=== PATIENT | female | born 1955 | race Caucasian/White ===

== ENCOUNTER 2022-02-19 14:01 | Inpatient (IN) ==
[2022-02-19] MEDS ORDERED: SODIUM CHLORIDE 0.9% 500 ML IV ONE (14:18)
--- NOTE | 2022-02-19 14:21 | Emergency Department Note ---
Impression & Plan Weakness, Hypotension, Diarrhea, Dependence on renal dialysis ED Provider Note NAME: GEO MCNALLY AGE: 67 SEX: F : 1955 ARRIVES VIA: Ambulance INFORMANT: Patient ED PROVIDER(S): Espinoza Tijerina DO CHIEF COMPLAINT: weakness and diarrhea HPI: Patient is a 67-year-old female with past medical history of hypothyroidism, metabolic syndrome, hypertension and a flutter on apixaban that presents the ER for diarrhea and weakness. She was recently discharged from [facility] this past Friday. She has a fistula and was prepping for colonoscopy tomorrow. She started the prep late last night. This morning she has been having persistent diarrhea and feels very weak and rundown and cannot move or get around so they called EMS. She denies any headache or change in vision. No chest pain or shortness of breath. No nausea, vomiting, or diarrhea. She normally gets dialysis Friday but with a colonoscopy she received dialysis yesterday. ROS: See above HPI for pertinent positives & negatives. A total of 10 systems reviewed and were otherwise negative. PAST MEDICAL HISTORY:See Below PAST SURGICAL HISTORY:See Below FAMILY HISTORY:See Below SOCIAL HISTORY:See Below HOME MEDICATIONS:See Below ALLERGIES:See Below VITALS:See Below PHYSICAL EXAMINATION: GENERAL: Sitting up in bed, alert, well appearing, well nourished, no distress, non-toxic EYE EXAM: normal conjunctiva. OROPHARYNX: no exudate, no erythema, lips, buccal mucosa, and tongue normal and mucous membranes are moist NECK: supple, no nuchal rigidity, no adenopathy, non-tender CHEST: fistula in right upper chest LUNGS: Clear to auscultation. Normal chest wall mechanics HEART: no murmurs, S1 normal and S2 normal ABDOMEN: abdomen soft, non-tender, normo-active bowel sounds, no masses, no rebound or guarding. UPPER EXTREMITIES: upper extremities are grossly normal. LOWER EXTREMITIES: Small abrasion on right anterior casper NEURO EXAM: Normal sensorium, cranial nerves II-XII grossly intact, normal speech, no gross weakness of arms, no gross weakness of legs. MEDICAL DECISION MAKING: Patient is a 67-year-old female who presents the ER with above-stated complaint. IV was established blood work was obtained. Labs show mild leukocytosis of 10.9. Mild anemia at 8.3 consistent with previous. BMP with a creatinine of 3.4. LFTs bilirubin and lipase is unremarkable. COVID was negative. She received dialysis yesterday so she can scope tomorrow and will receive dialysis on Friday. Discussed with GI Dr. Breen some mild and due to the weakness and the dehydration in a patient receiving dialysis recommended admission and they will try to scope tomorrow. Discussed with Sonia from case here service and they recommended transfer as we have no dialysis. Discussed with wood room supervisor who agreed that this was reasonable to bring in as she does not need dialysis and will not need it till and is agreeable to consulting and evaluating the patient. We discussed with the hospitalist service and they are agreeable. Triage Nursing notes reviewed. Limited review of prior medical records performed Vital Signs: reviewed and remarkable for hypotension Differential diagnosis: Infection, dehydration, metabolic abnormality, hypo/hyperglycemia, electrolyte disturbance, anemia, hypoxia, cardiac sources, intracerebral event, toxicologic, neurologic, as well as other pathologies. ER treatment provided: See below Diagnostics interpreted by me: ECG: Sinus rhythm rate of 105 Poor baseline Normal axis Difficult to interpret due to baseline Cardiac Monitoring: An order was placed for continuous cardiac monitoring. The monitor shows a rate of 101 with sinus rhythm. Laboratory studies: As stated above and show below. Imaging studies: See below Consultation(s): As described above Procedures: none Past Med/Surg History Medical History (Updated 02/19/22 @ 20:28 by Espinoza Tijerina DO) Anemia Anxiety Arthritis Atrial flutter HX A FLUTTER>CARDIAC ABLATION 2020 AV fistula RT (NEW DEVICE/HAS NOT USED YET) CKD (chronic kidney disease) Dialysis patient M/W/F AT [facility] Goodpasture syndrome Hemodialysis status History of COVID-19 09/2021 TESTED AT [facility]>HOSPITALIZED FOR FALLING>WENT TO REHAB (PT STATES ONLY WAS WEAK) Hyperlipidemia Hypertension Hypothyroidism Lymphedema right leg (chronic) Morbid obesity with BMI of 50.0-59.9, adult LAVON on CPAP CPAP Osteoarthritis Surgical History H/O cardiac radiofrequency ablation 06/2021 [facility] History of cardioversion 5 YEARS AGO History of colonoscopy attempted colonoscopy in November 2021 -- unsuccessful d/t poor prep History of tonsillectomy History of vascular access device CURRENT PORT IN CHEST FOR DIALYSIS USE Hx of vaginal hysterectomy Family History Mother Family history of diabetes mellitus Other No family history of adverse response to anesthesia Social History Smoking Status: Never smoker Second Hand Exposure: No; Hx Alcohol Use: No Hx Substance Use: No Preferred Language: Malian Communication Ability: Effective Manager Private Required: No Beliefs That Will Affect Care: None marital status: Current Living Situation: Spouse Feels Safe at Home: Yes Assistive Devices: CPAP, Glasses, Walker and Wheelchair Allergies Allergies Allergy/AdvReac Type Severity Reaction Status Date / Time adhesive tape Allergy Intermediate blisters Verified 02/19/22 17:03 No Known Drug Allergies Allergy NKDA Verified 02/19/22 17:03 Home Meds Home Medications Medication Instructions Recorded Confirmed apixaban 5 mg tablet (Eliquis) 2.5 mg PO .HOLD UD 04/17/20 02/19/22 levothyroxine 125 mcg capsule 125 mcg PO QAM 04/17/20 02/19/22 metoprolol succinate 25 mg 25 mg PO 4XWK 04/17/20 02/19/22 tablet,extended release 24 hr ferrous sulfate 325 mg (65 mg 325 mg PO QAM 11/22/21 02/19/22 iron) tablet (iron) multivitamin with minerals 1 tab PO QAM 11/22/21 02/19/22 omeprazole 40 mg capsule,delayed 40 mg PO QAM PRN 11/22/21 02/19/22 release prednisone 5 mg tablet 5 mg PO QAM 11/22/21 02/19/22 atorvastatin 20 mg tablet 20 mg PO QAM 02/15/22 02/19/22 midodrine 5 mg tablet 5 mg PO TID 02/15/22 02/19/22 Results & Data (ED) Vital Signs Vital Signs - 24 hr 02/19/22 14:12 02/19/22 15:46 02/19/22 16:49 Temperature 37.1 C Temperature Source Oral Pulse Rate 102 H Pulse Rate [Apical] 78 Pulse Rhythm Regular Pulse Strength Normal Respiratory Rate 20 20 Respiratory Effort / Characteristics Non-Labored Respiratory Depth Normal Respiratory Pattern Regular Blood Pressure [Left Arm] 84/58 L 92/58 L Blood Pressure Mean [Left Arm] 66 69 Pulse Oximetry 96 91 Oxygen Delivery Method Room Air Room Air Sepsis Recent Fever Within 48 Hours No Sepsis New/Unexplained Change in Mental Status No Sepsis Action Taken by Nursing No Action Required 02/19/22 17:03 02/19/22 17:57 02/19/22 18:38 Temperature Temperature Source Pulse Rate 76 Pulse Rate [Apical] 76 Pulse Rhythm Regular Pulse Strength Respiratory Rate 14 22 Respiratory Effort / Characteristics Non-Labored Respiratory Depth Normal Respiratory Pattern Blood Pressure [Left Arm] 81/41 L 90/40 L Blood Pressure Mean [Left Arm] 54 56 Pulse Oximetry 92 92 Oxygen Delivery Method Room Air Room Air Sepsis Recent Fever Within 48 Hours Sepsis New/Unexplained Change in Mental Status Sepsis Action Taken by Nursing Laboratory Data Result diagrams: 02/19/22 14:37 02/19/22 14:37 Lab Results 02/19/22 02/19/22 02/19/22 Range/Units 14:37 14:37 14:37 WBC 10.99 H (4.8-10.8) K/uL RBC 2.65 L (4.2-5.4) M/uL Hgb 8.3 L (12.0-16.0) g/dL Hct 27.5 L (37-47) % MCV 103.8 H (80-100) fL MCH 31.3 (25-34) pg MCHC 30.2 L (32-36) g/dL RDW Std Deviation 74.0 H (36.4-46.3) fL RDW Coeff of Nina 19.6 H (11.5-14.5) % Plt Count 154 (130-400) K/uL MPV 10.6 H (7.4-10.4) fL Immature Gran % (Auto) 0.5 % Neut % (Auto) 86.4 % Lymph % (Auto) 3.0 % Bailey % (Auto) 10.1 % Eos % (Auto) 0.0 % Baso % (Auto) 0.0 % Neut # (Auto) 9.50 H (1.4-6.5) K/uL Lymph # (Auto) 0.33 L (1.2-3.4) K/uL Bailey # (Auto) 1.11 H (0.11-0.59) K/uL Eos # (Auto) 0.00 (0-0.5) K/uL Baso # (Auto) 0.00 (0-0.2) K/uL Immature Gran # (Auto) 0.05 H (0.00-0.02) K/uL Sodium 138 (136-145) mmol/L Potassium 3.9 (3.5-5.1) mmol/L Chloride 101 (98-107) mmol/L Carbon Dioxide 28 (21-32) mmol/L Anion Gap 9 (3-11) BUN 15 (6-23) mg/dl Creatinine 3.45 H (0.6-1.2) mg/dl Est Cr Clr Drug Dosing 16.7 ml/min Est GFR ( Amer) 15.0 ml/min Est GFR (Non-Af Amer) 12.9 ml/min BUN/Creatinine Ratio 4.3 L (10-20) Glucose 81 (70-99(Fasting)) mg/dl Calcium 7.8 L (8.5-10.1) mg/dl Magnesium 1.8 (1.7-2.4) mg/dl Total Bilirubin 0.7 (0.2-1.0) mg/dl AST 22 (13-39) U/L ALT 15 (7-52) U/L Alkaline Phosphatase 94 (34-104) U/L Total Protein 4.9 L (6.0-8.3) gm/dl Albumin 2.7 L (3.4-5.0) gm/dl Globulin 2.2 L (2.5-4.0) gm/dl Albumin/Globulin Ratio 1.2 (0.9-2) Lipase 17 (11-82) U/L SARS-CoV-2, RNA, NAAT (NEGATIVE) 02/19/22 Range/Units 14:45 WBC (4.8-10.8) K/uL RBC (4.2-5.4) M/uL Hgb (12.0-16.0) g/dL Hct (37-47) % MCV (80-100) fL MCH (25-34) pg MCHC (32-36) g/dL RDW Std Deviation (36.4-46.3) fL RDW Coeff of Nina (11.5-14.5) % Plt Count (130-400) K/uL MPV (7.4-10.4) fL Immature Gran % (Auto) % Neut % (Auto) % Lymph % (Auto) % Bailey % (Auto) % Eos % (Auto) % Baso % (Auto) % Neut # (Auto) (1.4-6.5) K/uL Lymph # (Auto) (1.2-3.4) K/uL Bailey # (Auto) (0.11-0.59) K/uL Eos # (Auto) (0-0.5) K/uL Baso # (Auto) (0-0.2) K/uL Immature Gran # (Auto) (0.00-0.02) K/uL Sodium (136-145) mmol/L Potassium (3.5-5.1) mmol/L Chloride (98-107) mmol/L Carbon Dioxide (21-32) mmol/L Anion Gap (3-11) BUN (6-23) mg/dl Creatinine (0.6-1.2) mg/dl Est Cr Clr Drug Dosing ml/min Est GFR ( Amer) ml/min Est GFR (Non-Af Amer) ml/min BUN/Creatinine Ratio (10-20) Glucose (70-99(Fasting)) mg/dl Calcium (8.5-10.1) mg/dl Magnesium (1.7-2.4) mg/dl Total Bilirubin (0.2-1.0) mg/dl AST (13-39) U/L ALT (7-52) U/L Alkaline Phosphatase (34-104) U/L Total Protein (6.0-8.3) gm/dl Albumin (3.4-5.0) gm/dl Globulin (2.5-4.0) gm/dl Albumin/Globulin Ratio (0.9-2) Lipase (11-82) U/L SARS-CoV-2, RNA, NAAT NEGATIVE (NEGATIVE) Administered Medications Discontinued Medications Sodium Chloride (Nss) 500 mls @ 999 mls/hr IV .Q31M ONE Stop: 02/19/22 14:48 Last Infusion: 02/19/22 17:43 Dose: 0 mls/hr Documented by: [id number] Admin: 02/19/22 15:01 Dose: 999 mls/hr Documented by: [id number] Discharge Plan Visit Data Chief Complaint: Weakness Stated Complaint: WEAKNESS, UNABLE TO AMBULATE, DIARRHEA ED Provider: Espinoza Tijerina Discharge Problem: Weakness, Hypotension, Diarrhea, Dependence on renal dialysis Forms Stand Alone Forms: [facility] Prescriptions Prescriptions: No Action metoprolol succinate 25 mg tablet extended release 24 hr 25 mg PO 4XWK RF: 0 levothyroxine 125 mcg capsule 125 mcg PO QAM RF: 0 Eliquis 5 mg tablet 2.5 mg PO .HOLD UD RF: 0 prednisone 5 mg Tablet 5 mg PO QAM RF: 0 omeprazole 40 mg Capsule,Delayed Release(Dr/Ec) 40 mg PO QAM PRN (Reason: severe heartburn) RF: 0 multivitamin with minerals Tablet 1 tab PO QAM RF: 0 ferrous sulfate [iron] 325 mg (65 mg iron) Tablet 325 mg PO QAM RF: 0 atorvastatin 20 mg Tablet 20 mg PO QAM RF: 0 midodrine 5 mg Tablet 5 mg PO TID RF: 0 Referrals Referrals: Esperanza Carrillo PA-C [Primary Care Provider] - Discharge Problem: Hypotension Qualifiers: Hypotension type: unspecified hypotension type Qualified Code(s): I95.9 - Hypotension, unspecified Diarrhea Qualifiers: Diarrhea type: unspecified type Qualified Code(s): R19.7 - Diarrhea, unspecified
[2022-02-19 15:03] LABS: Hematocrit (blood only) 27.5 % (37-47); Hemoglobin 8.3 g/dL (12.0-16.0); Immature Granulocytes # (auto) 0.05 K/uL (0.00-0.02); Immature Granulocytes % (auto) 0.5 %; Lymphocytes # (auto) 0.33 K/uL (1.2-3.4); Mean Corpuscular Hemoglobin 31.3 pg (25-34); Mean Corpuscular Hgb Conc 30.2 g/dL (32-36); Mean Corpuscular Volume 103.8 fL (80-100); Mean Platelet Volume 10.6 fL (7.4-10.4); Monocytes # (auto) 1.11 K/uL (0.11-0.59); Monocytes % (auto) 10.1 %; Neutrophils % (auto) 86.4 %; Platelet Count 154 K/uL (130-400); RDW Coefficient of Variation 19.6 % (11.5-14.5); Red Blood Count 2.65 M/uL (4.2-5.4); White Blood Count 10.99 K/uL (4.8-10.8)
[2022-02-19 15:16] LABS: Albumin Globulin Ratio 1.2 (0.9-2); Albumin Level 2.7 gm/dl (3.4-5.0); BUN Creatinine Ratio 4.3 (10-20); Bilirubin,Total 0.7 mg/dl (0.2-1.0); Calcium 7.8 mg/dl (8.5-10.1); Creatinine Clr Calc Pharmacy 16.7 ml/min; Est GFR (Non-African American) 12.9 ml/min; Globulin 2.2 gm/dl (2.5-4.0); Potassium 3.9 mmol/L (3.5-5.1); Total Protein 4.9 gm/dl (6.0-8.3)
--- NOTE | 2022-02-19 17:24 | Communication Note ---
Date of Service: February 19, 2022 Pt being admitted from the ER - came in with weakness, diarrhea; she is completing an extended prep for colonoscopy tomorrow. - Recommend she continue and finish her prep - Can have clear liquids until midnight - NPO after midnight - Colonoscopy tomorrow Please call with any acute changes, questions or concerns. Please see addendum below with additional recommendation from my supervising physician. I have discussed the patient's management with the advanced practitioner. Please refer to the nurse practitioner's note for the documented findings and plan of care. Admitted due to dehydration from bowel prep with hypotension in the setting of ESRD on HD. Plan to continue gentle prep overnight and colonoscopy tomorrow.
--- NOTE | 2022-02-19 17:40 | History & Physical Report ---
Date of Service February 19, 2022 Assessment & Plan (1) Gastrointestinal fistula: (2) Goodpasture syndrome: (3) Hemodialysis status: (4) Hypotension: (5) Atrial flutter: (6) Hypothyroidism (acquired): (7) LAVON on CPAP: (8) Morbid obesity with BMI of 50.0-59.9, adult: Plan: This is a 67yo F with a PMH of Goodpasture syndrome on HD MWF, atrial flutter, HTN, severe LAVON and other medical problems listed below who presents with worsening weakness and lightheadedness in setting of bowel prep. GI fistula Records requested from recent admission at [facility] Colonoscopy with Dr. Ramirez in AM Clears this evening, NPO after midnight Continue prep with Golytely per discussion with Dr. Ramirez, antiemetics PRN Goodpasture syndrome Hemodialysis [place] [facility] [place] Dr. Gonzalez nephro HD patient MWF, received yesterday and due on If need for urgent dialysis, may need transfer due to limited resources Discussed patient with Dr. Eckert Continue prednisone Hypotension Baseline SBP 85-90 Continue Midodrine, received 500 ml NSS in ED. Continue gentle fluids at 100 cc /hr to keep SBP near baseline during prep Metoprolol with hold parameters Severe ALVON CPAP HS Atrial flutter Metoprolol with hold parameters Eliquis on hold for procedure, per [facility] cardiology Morbid obesity with BMI > 50 DVT Ppx: SCDs Code status: FULL PCP: Gerardo Dispo: Med tele Patient seen in collaboration with Dr. Mcknight. Please see addendum. History of Present Illness Chief Complaint: weakness, lightheadedness Primary Care Provider: Esperanza Carrillo This is a 67yo F with a PMH of Goodpasture syndrome on HD MWF, atrial flutter, HTN, severe LAVON and other medical problems listed below who presents with wo rsening weakness and lightheadedness. Was due for colonoscopy tomorrow due to rectovaginal fistula per patient but due to progressing weakness and lightheadedness, was directed by Dr. Ramirez to present to ER instead. Has been doing slow prep with miralax over 2 days due to intolerance to prep last time. Has been holding Eliquis since Kt for procedure per remediation technician at [facility]. Feeling better while lying down but still generally weak. No syncopal events or falls at home. No fever, chills, headache, chest pain, SOB, nausea, abdominal pain or blood in stool. Does not make urine 2/2 kidney disease. BP soft at baseline with SBP around 85-90 at home, per family at bedside. Complicated medical course recently with admission at [facility] at the beginning of the month followed by 2 weeks at [facility] rehab prior to returning home 1 week ago. Allergies Allergy/AdvReac Type Severity Reaction Status Date / Time adhesive tape Allergy Intermediate blisters Verified 02/19/22 17:03 No Known Drug Allergies Allergy NKDA Verified 02/19/22 17:03 Home Medications Medication Instructions Recorded Confirmed Type apixaban 5 mg tablet (Eliquis) 2.5 mg PO .HOLD UD 04/17/20 02/19/22 History levothyroxine 125 mcg capsule 125 mcg PO QAM 04/17/20 02/19/22 History metoprolol succinate 25 mg 25 mg PO 4XWK 04/17/20 02/19/22 History tablet,extended release 24 hr ferrous sulfate 325 mg (65 mg 325 mg PO QAM 11/22/21 02/19/22 History iron) tablet (iron) multivitamin with minerals 1 tab PO QAM 11/22/21 02/19/22 History prednisone 5 mg tablet 5 mg PO QAM 11/22/21 02/19/22 History atorvastatin 20 mg tablet 20 mg PO QAM 02/15/22 02/19/22 History buspirone 5 mg tablet 5 mg PO BID #30 tab 02/23/22 Rx midodrine 5 mg tablet 10 mg PO TID #0 tab 02/23/22 02/19/22 Rx pantoprazole 40 mg tablet,delayed 40 mg PO QAM PRN #30 tab 02/23/22 Rx release Past Med/Surg History Medical History Anemia Anxiety Arthritis Atrial flutter HX A FLUTTER>CARDIAC ABLATION 2020 AV fistula RT (NEW DEVICE/HAS NOT USED YET) CKD (chronic kidney disease) Dialysis patient M/W/F AT [facility] Hemodialysis status History of COVID-19 09/2021 TESTED AT [facility]>HOSPITALIZED FOR FALLING>WENT TO REHAB (PT STATES ONLY WAS WEAK) Hyperlipidemia Hypotension new/worse in 2021 Hypothyroidism Lymphedema right leg (chronic) Morbid obesity with BMI of 50.0-59.9, adult LAVON on CPAP CPAP Osteoarthritis Rectovaginal fistula Surgical History H/O cardiac radiofrequency ablation 06/2021 [facility] History of cardioversion 5 YEARS AGO History of colonoscopy attempted colonoscopy in November 2021 -- unsuccessful d/t poor prep History of tonsillectomy History of vascular access device CURRENT PORT IN CHEST FOR DIALYSIS USE Hx of vaginal hysterectomy Family History Mother Family history of diabetes mellitus Other No family history of adverse response to anesthesia Social History Smoking Status: Never smoker Second Hand Exposure: No; Hx Alcohol Use: No Hx Substance Use: No Preferred Language: Bulgarian Communication Ability: Effective Branch Banker Required: No Beliefs That Will Affect Care: None marital status: Current Living Situation: Spouse Feels Safe at Home: Yes Assistive Devices: CPAP, Walker and Wheelchair Review of Systems Review of Systems: At least ten systems reviewed and negative except as noted in the HPI. Physical Exam Physical Exam: General Appearance: WD/WN, vitals as above, NAD, sitting up in bed, pleasant, morbidly obese Head: normocephalic, atraumatic Eyes: normal inspection, PERRL, conjunctivae normal, anicteric sclerae ENT: external ear and nose normal, oropharynx normal Neck: normal visual inspection, trachea midline, no thyromegaly Respiratory: normal respiratory effort, lungs clear to auscultation, no wheeze, rales, rhonchi. No accessory muscle use Cardiovascular: regular rate, rhythm, no murmur, normal peripheral pulses, BLE lymphedema. Vessels: no JVD Chest: normal inspection of chest Abdomen/GI: hyperactive bowel sounds, soft, nontender, no hepatosplenomegaly Extremities/Musculoskeletal: no cyanosis or clubbing, extremities motor streng th 12/27. RLE wound with dressing in place, c/d/i Neurologic: PERRL, EOMI, accommodation nl, no face palsy, no dysarthria, CN's II-XI intact bilaterally and moves all extremities Psychiatric: A+Ox3, euthymic affect Skin: no rashes, normal color, warm/dry Results & Data Results & Data ([facility]) Vital Signs (Past 12 Hours) Vital Signs Temp Pulse Pulse Resp BP Pulse Ox 02/19/22 17:03 76 14 92 02/19/22 16:49 92/58 L 02/19/22 15:46 78 20 84/58 L 91 02/19/22 14:12 37.1 C 102 H 20 96 Laboratory Results Short CBC 02/19/22 Range/Units 14:37 WBC 10.99 H (4.8-10.8) K/uL Hgb 8.3 L (12.0-16.0) g/dL Hct 27.5 L (37-47) % Plt Count 154 (130-400) K/uL BMP 02/19/22 14:37 Sodium 138 Potassium 3.9 Chloride 101 Carbon Dioxide 28 BUN 15 Creatinine 3.45 H Glucose 81 Calcium 7.8 L Liver Function 02/19/22 Range/Units 14:37 Total Bilirubin 0.7 (0.2-1.0) mg/dl AST 22 (13-39) U/L ALT 15 (7-52) U/L Alkaline Phosphatase 94 (34-104) U/L Albumin 2.7 L (3.4-5.0) gm/dl Code Status & VTE Plan VTE Prophylaxis Plan VTE Prophylaxis will be ordered: Yes Supervising Physician Co-Signing Physician Notes Patient seen and examined by me, care coordinated with Sonia Rose PA-C, please refer to her note above for further detail. Pt is a 67yo morbidly obese F with a Goodpasture syndrome on HD MWF, atrial flutter, HTN, severe LAVON who presents with worsening weakness and lightheadedness during colonoscopy prep. Pt is due for colonoscopy tomorrow due to rectovaginal fistula per patient but due to progressing weakness and lightheadedness, was directed by Dr. Ramirez to present to ER instead. Pt is feeling better while lying down, BP on lower side at baseline. She is awake alert oriented, answering questions appropriately. Heart sounds regular, lungs are clear to auscultation bilaterally. Abdomen is soft, obese, nontender nondistended, with positive bowel sounds. Patient moves extremities. Skin is warm and dry. Plan to continue bowel prep, GoLytely, antiemetics as needed. Plan for colon oscopy tomorrow. We will provide gentle IV hydration. Closely monitor overnight. MD Roxanna
[2022-02-19] MEDS ORDERED: SODIUM CHLORIDE 0.9% 1000ML 1,000 ML IV ONE (18:48)
[2022-02-19] MEDS ORDERED: LAVAGE SOLUTION 4000ML PO ONE (19:10)
[2022-02-19] MEDS ORDERED: ONDANSETRON INJ 2 MG/ML 2 ML VIAL IV PRN (19:21)
[2022-02-19] MEDS ORDERED: MIDODRINE HCL 2.5 MG TAB PO SCH (21:01)
[2022-02-19] MEDS: ALBUMIN 25% 100 mL 25 GM/100 ML VIAL IV SCH (21:11)
[2022-02-19] MEDS ORDERED: PANTOprazole 40 MG TAB PO PRN (21:20)
[2022-02-19] MEDS: ACETAMINOPHEN 325 MG TAB PO PRN (23:54)
[2022-02-20] MEDS: ALBUMIN 25% 100 mL 25 GM/100 ML VIAL IV SCH ×4 (02:43→21:31)
[2022-02-20] MEDS: LEVOTHYROXINE SODIUM 125 MCG TABLET PO SCH (06:03)
[2022-02-20] MEDS ORDERED: dexAMETHasone 4 MG in SYRINGE 0 ML IV ONE ×2 (06:24→20:45)
[2022-02-20 06:27] LABS: Albumin Globulin Ratio 2.2 (0.9-2); Albumin Level 2.8 gm/dl (3.4-5.0); BUN Creatinine Ratio 4.9 (10-20); Bilirubin,Total 0.7 mg/dl (0.2-1.0); Calcium 7.3 mg/dl (8.5-10.1); Creatinine Clr Calc Pharmacy 14.9 ml/min; Est GFR (African American) 13.1 ml/min; Est GFR (Non-African American) 11.3 ml/min; Globulin 1.3 gm/dl (2.5-4.0); Magnesium 1.7 mg/dl (1.7-2.4); Potassium 3.5 mmol/L (3.5-5.1); Total Protein 4.1 gm/dl (6.0-8.3)
[2022-02-20] MEDS: MIDODRINE HCL 2.5 MG TAB PO SCH ×3 (07:02→17:39)
[2022-02-20] MEDS: CEROVITE ADV FORMULA TAB PO SCH (07:50)
[2022-02-20] MEDS: FERROUS SULFATE 325 MG TAB PO SCH (07:50)
[2022-02-20] MEDS ORDERED: predniSONE 5 MG TAB PO SCH (09:00)
--- NOTE | 2022-02-20 09:17 | Gastrointestinal Consultation ---
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 Hasn't completed her prep; stool is running liquid brown. HGB trended down this AM; no obvious acute GIB. Abd soft, nontender. - HGB drifted down to 6.4 today; spoke with endoscopist who spoke with anesthesi a. They may not be comfortable sedating her with co-morbids including anemia. If this is the case, we can plan unsedated colonoscopy - Recommend pRBC transfusion now to improve HGB and repeat H/H afterwards; I updated pt's nurse and hospitalist - Will do tap water enema now to help clear the colon - Continue to drink prep until approx 1 pm Thank you for allowing us to participate in the care of this patient. Please call with any acute changes, questions or concerns. Please see addendum below with additional recommendation from my supervising physician. Supervising Physician Co-Signing Physician Notes I performed a history and physical examination of the patient today, including specifically on physical exam - soft abdomen. I have discussed the patient's management with the advanced practitioner. Please refer to the nurse practitioner's note for the documented findings and plan of care. Will attempt colonoscopy today. Anesthesia declined sedation due to anemia and hypotension however the patient agreed to do it awake. Patient was explained in detail regarding risks, benefits, limitations and alternatives of the above endoscopic procedure. Risks include, but not limited to perforation, bleeding, infection, respiratory distress, cardiac arrest and . Patient is also aware about the possibility of missed lesion. Patient's questions were answered. The patient verbalized understanding the information and agreed to undergo the procedure. 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 She had colonoscopy in November of this year but had poor prep. She has a history of diverticulitis in the past. She was supposed to have OP colonoscopy today but called yesterday with weakness with taking her prep. She was admitted to the hospital and advised to complete prep her in the hospital and do colonoscopy here as an inpt today. Overnight pt drank approx less than half of her GoLyltely. She is still sipping it. At home she states she drank approx 30 oz of Miralax; didnt take Dulcolax. She states liquid brown stool is "running out of her" - had one small amt of hematochezia yesterday; no melena, abd pain, syncope, CP, SOB. Having some nausea but no vomiting, fever, chills. Has chronic hypotension, on midodrine. This AM HGB came back 6.4, HCT 20.9 (baseline 7-9), BUN 19. Colonoscopy 11/2021: - Preparation of the colon was poor. - Stool in vault found on digital rectal exam. - Diverticulosis in the sigmoid colon and in the descending colon. - Colonoscope only advanced to splenic flexure due to poor visualization and severe diverticular disease. - No specimens collected Allergies Allergy/AdvReac Type Severity Reaction Status Date / Time adhesive tape Allergy Intermediate blisters Verified 02/19/22 17:03 No Known Drug Allergies Allergy NKDA Verified 02/19/22 17:03 Home Medications Medication Instructions Recorded Confirmed Type apixaban 5 mg tablet (Eliquis) 2.5 mg PO .HOLD UD 04/17/20 02/19/22 History levothyroxine 125 mcg capsule 125 mcg PO QAM 04/17/20 02/19/22 History metoprolol succinate 25 mg 25 mg PO 4XWK 04/17/20 02/19/22 History tablet,extended release 24 hr ferrous sulfate 325 mg (65 mg 325 mg PO QAM 11/22/21 02/19/22 History iron) tablet (iron) multivitamin with minerals 1 tab PO QAM 11/22/21 02/19/22 History omeprazole 40 mg capsule,delayed 40 mg PO QAM PRN 11/22/21 02/19/22 History release prednisone 5 mg tablet 5 mg PO QAM 11/22/21 02/19/22 History atorvastatin 20 mg tablet 20 mg PO QAM 02/15/22 02/19/22 History midodrine 5 mg tablet 5 mg PO TID 02/15/22 02/19/22 History Patient History Medical History (Updated 02/20/22 @ 11:05 by Adelina Ramirez MD) Anemia Anxiety Arthritis Atrial flutter HX A FLUTTER>CARDIAC ABLATION 2020 AV fistula RT (NEW DEVICE/HAS NOT USED YET) CKD (chronic kidney disease) Dialysis patient M/W/F AT [facility] Goodtxsture syndrome Hemodialysis status History of COVID-19 09/2021 [facility]>HOSPITALIZED FOR FALLING>WENT TO REHAB (PT STATES ONLY WAS WEAK) Hyperlipidemia Hypertension Hypothyroidism Lymphedema right leg (chronic) Morbid obesity with BMI of 50.0-59.9, adult LAVON on CPAP CPAP Osteoarthritis Surgical History H/O cardiac radiofrequency ablation 06/2021 [facility] History of cardioversion 5 YEARS AGO History of colonoscopy attempted colonoscopy in November 2021 -- unsuccessful d/t poor prep History of tonsillectomy History of vascular access device CURRENT PORT IN CHEST FOR DIALYSIS USE Hx of vaginal hysterectomy Family History Mother Family history of diabetes mellitus Other No family history of adverse response to anesthesia Social History Smoking Status: Never smoker Second Hand Exposure: No; Hx Alcohol Use: No Hx Substance Use: No Preferred Language: Gabonese Communication Ability: Effective Cooker Cleaner Required: No Beliefs That Will Affect Care: None marital status: Current Living Situation: Spouse Other Information That Helps Us Care for You: No Feels Safe at Home: Yes Safety Concerns: Feels Safe At This Time Assistive Devices: CPAP, Walker and Wheelchair Review of Systems Review of Systems: All systems reviewed & are unremarkable except as noted in HPI & below Physical Exam Constitutional: WD/WN, vitals as above Eyes: PERRL, conjunctivae normal, anicteric sclerae Respiratory: normal respiratory effort, lungs clear to auscultation Cardiovascular: Rate/Rhythm: regular rate and regular rhythm Gastrointestinal (Abdomen): normal bowel sounds, soft, nontender, no hepatosplenomegaly Skin: no rashes, warm and dry Psychiatric: A+Ox3, euthymic affect Results & Data ([facility]) Vital Signs (Past 12 Hours) Vital Signs Temp Pulse Pulse Resp BP Pulse Ox 02/20/22 08:06 36.7 C 79 19 75/49 L 92 02/20/22 04:00 36.7 C 71 16 81/50 L 94 02/20/22 00:00 72 02/19/22 23:25 36.6 C 73 16 88/59 L 94 Laboratory Results 02/20/22 02/20/22 02/20/22 Range/Units 07:27 05:41 05:41 WBC Cancelled (4.8-10.8) K/uL RBC Cancelled (4.2-5.4) M/uL Hgb Cancelled (12.0-16.0) g/dL Hct Cancelled (37-47) % MCV Cancelled (80-100) fL MCH Cancelled (25-34) pg MCHC Cancelled (32-36) g/dL RDW Std Deviation Cancelled (36.4-46.3) fL RDW Coeff of Nina Cancelled (11.5-14.5) % Plt Count Cancelled (130-400) K/uL MPV Cancelled (7.4-10.4) fL Immature Gran % (Auto) % Neut % (Auto) % Lymph % (Auto) % [place] % (Auto) % Eos % (Auto) % Baso % (Auto) % Neut # (Auto) (1.4-6.5) K/uL Lymph # (Auto) (1.2-3.4) K/uL [place] # (Auto) (0.11-0.59) K/uL Eos # (Auto) (0-0.5) K/uL Baso # (Auto) (0-0.2) K/uL Immature Gran # (Auto) (0.00-0.02) K/uL Absolute Nucleated RBC Cancelled Nucleated RBC % (auto) Cancelled Platelet Estimate Cancelled Sodium 137 (136-145) mmol/L Potassium 3.5 (3.5-5.1) mmol/L Chloride 103 (98-107) mmol/L Carbon Dioxide 23 (21-32) mmol/L Anion Gap 11 (3-11) BUN 19 (6-23) mg/dl Creatinine 3.85 H D (0.6-1.2) mg/dl Est Cr Clr Drug Dosing 14.9 ml/min Est GFR ( Amer) 13.1 ml/min Est GFR (Non-Af Amer) 11.3 ml/min BUN/Creatinine Ratio 4.9 L (10-20) Glucose 59 L (70-99(Fasting)) mg/dl Lactate 0.9 (0.4-2.0) mmol/L Calcium 7.3 L (8.5-10.1) mg/dl Magnesium 1.7 (1.7-2.4) mg/dl Total Bilirubin 0.7 (0.2-1.0) mg/dl AST 16 (13-39) U/L ALT 11 (7-52) U/L Alkaline Phosphatase 60 (34-104) U/L Total Protein 4.1 L (6.0-8.3) gm/dl Albumin 2.8 L (3.4-5.0) gm/dl Globulin 1.3 L (2.5-4.0) gm/dl Albumin/Globulin Ratio 2.2 H (0.9-2) Lipase (11-82) U/L SARS-CoV-2, RNA, NAAT (NEGATIVE) 02/19/22 02/19/22 02/19/22 Range/Units 14:45 14:37 14:37 WBC (4.8-10.8) K/uL RBC (4.2-5.4) M/uL Hgb (12.0-16.0) g/dL Hct (37-47) % MCV (80-100) fL MCH (25-34) pg MCHC (32-36) g/dL RDW Std Deviation (36.4-46.3) fL RDW Coeff of Nnia (11.5-14.5) % Plt Count (130-400) K/uL MPV (7.4-10.4) fL Immature Gran % (Auto) % Neut % (Auto) % Lymph % (Auto) % [place] % (Auto) % Eos % (Auto) % Baso % (Auto) % Neut # (Auto) (1.4-6.5) K/uL Lymph # (Auto) (1.2-3.4) K/uL [place] # (Auto) (0.11-0.59) K/uL Eos # (Auto) (0-0.5) K/uL Baso # (Auto) (0-0.2) K/uL Immature Gran # (Auto) (0.00-0.02) K/uL Absolute Nucleated RBC Nucleated RBC % (auto) Platelet Estimate Sodium 138 (136-145) mmol/L Potassium 3.9 (3.5-5.1) mmol/L Chloride 101 (98-107) mmol/L Carbon Dioxide 28 (21-32) mmol/L Anion Gap 9 (3-11) BUN 15 (6-23) mg/dl Creatinine 3.45 H (0.6-1.2) mg/dl Est Cr Clr Drug Dosing 16.7 ml/min Est GFR ( Amer) 15.0 ml/min Est GFR (Non-Af Amer) 12.9 ml/min BUN/Creatinine Ratio 4.3 L (10-20) Glucose 81 (70-99(Fasting)) mg/dl Lactate (0.4-2.0) mmol/L Calcium 7.8 L (8.5-10.1) mg/dl Magnesium 1.8 (1.7-2.4) mg/dl Total Bilirubin 0.7 (0.2-1.0) mg/dl AST 22 (13-39) U/L ALT 15 (7-52) U/L Alkaline Phosphatase 94 (34-104) U/L Total Protein 4.9 L (6.0-8.3) gm/dl Albumin 2.7 L (3.4-5.0) gm/dl Globulin 2.2 L (2.5-4.0) gm/dl Albumin/Globulin Ratio 1.2 (0.9-2) Lipase 17 (11-82) U/L SARS-CoV-2, RNA, NAAT NEGATIVE (NEGATIVE) 02/19/22 Range/Units 14:37 WBC 10.99 H (4.8-10.8) K/uL RBC 2.65 L (4.2-5.4) M/uL Hgb 8.3 L (12.0-16.0) g/dL Hct 27.5 L (37-47) % MCV 103.8 H (80-100) fL MCH 31.3 (25-34) pg MCHC 30.2 L (32-36) g/dL RDW Std Deviation 74.0 H (36.4-46.3) fL RDW Coeff of Nina 19.6 H (11.5-14.5) % Plt Count 154 (130-400) K/uL MPV 10.6 H (7.4-10.4) fL Immature Gran % (Auto) 0.5 % Neut % (Auto) 86.4 % Lymph % (Auto) 3.0 % [place] % (Auto) 10.1 % Eos % (Auto) 0.0 % Baso % (Auto) 0.0 % Neut # (Auto) 9.50 H (1.4-6.5) K/uL Lymph # (Auto) 0.33 L (1.2-3.4) K/uL [place] # (Auto) 1.11 H (0.11-0.59) K/uL Eos # (Auto) 0.00 (0-0.5) K/uL Baso # (Auto) 0.00 (0-0.2) K/uL Immature Gran # (Auto) 0.05 H (0.00-0.02) K/uL Absolute Nucleated RBC Nucleated RBC % (auto) Platelet Estimate Sodium (136-145) mmol/L Potassium (3.5-5.1) mmol/L Chloride (98-107) mmol/L Carbon Dioxide (21-32) mmol/L Anion Gap (3-11) BUN (6-23) mg/dl Creatinine (0.6-1.2) mg/dl Est Cr Clr Drug Dosing ml/min Est GFR ( Amer) ml/min Est GFR (Non-Af Amer) ml/min BUN/Creatinine Ratio (10-20) Glucose (70-99(Fasting)) mg/dl Lactate (0.4-2.0) mmol/L Calcium (8.5-10.1) mg/dl Magnesium (1.7-2.4) mg/dl Total Bilirubin (0.2-1.0) mg/dl AST (13-39) U/L ALT (7-52) U/L Alkaline Phosphatase (34-104) U/L Total Protein (6.0-8.3) gm/dl Albumin (3.4-5.0) gm/dl Globulin (2.5-4.0) gm/dl Albumin/Globulin Ratio (0.9-2) Lipase (11-82) U/L SARS-CoV-2, RNA, NAAT (NEGATIVE)
--- NOTE | 2022-02-20 09:46 | Nephrology Consultation ---
Date of Consultation February 20, 2022 Assessment & Plan (1) Hypotension: -recommend getting [facility] TTE from this spring and/or repeating TTE to eval heart mm function -get [facility] records >? eval for liver disease -continue midodrine -getting albumin IV ovrnight tonight >> follow fluid status closely (2) Dependence on renal dialysis: -continue HD 3X weekly; next tx tomorrow 02/21 though usually is MWF; has not been tolerating UF d/t volume issues -would not consider redosing rituxan at this tiime w/ active GI bleeding issues but needs to f/u on this (3) Acute on chronic anemia: s/p one unit pRBC today and has another unit ready; trend H/H; cont GI f/u (4) Rectovaginal fistula: follows w/ [facility]; colonoscopy aborted d/t sigmoid strict ure/diverticulosis History of Present Illness Reason for Consultation: ESRD on HD Requesting Physician: Dr Mcknight Attending Physician: Zaheer Reed MD History of Present Illness 67 y/o F whom I'm asked to see for dialysis needs was admitted last evening for evaluation of weakness, lightheadedness after presenting for OP colonoscopy and being directed to ER w/ SBP 80s. PMH includes ESRD w/ details as follows, rectovaginal fistula followed at [facility]; morbid obesity w/ BMI>50, severe OA and chronic ambulatory dysfunction, chronic lymphedema, atrial fibrillation s/p 07/2021 ablation, chronic and progressively worsening hypotension. 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 She received PLEX therapy and steroids along w/ cyclophosphamide. CYC had to be stopped d/t cytopenias. She was instead transitioned to rituxan therapy under rheumatology supervision in August 2021. She is considered high risk for relapse with maintenance q 6 month RTX planned as of 08/2021. Dialyzes at [place] [facility] w/ Dr Gonzalez on MWF; last HD on however 02/18 Her systolic blood pressure runs 100-110s in 2021, and in the past 4-6 weeks more in the 80-90s. Of note, in 2021 records her SBP was more 130-140s. She was under my care for dialysis at [facility] earlier this month for about 2 weeks > we had significant difficulty removing fluid d/t lower BP; we increased her midodrine from 5 mg w/ dialysis only to max dose of 10 mg tid w/ minimal improvement in BP. I recommended TTE to primary team and was told it had been done but no record on [facility] or [facility]. Pt tells me she had TTE at [facility] this spring. States she is sore after colonoscopy today but no n/v, no sob; feels edema controlled; worried about wound drainage R leg. Hgb came back very low today in 6s as below and colonoscopy aborted d/t severe sigmoid restriction. Allergies Allergy/AdvReac Type Severity Reaction Status Date / Time adhesive tape Allergy Intermediate blisters Verified 02/19/22 17:03 No Known Drug Allergies Allergy NKDA Verified 02/19/22 17:03 Home Medications Medication Instructions Recorded Confirmed Type apixaban 5 mg tablet (Eliquis) 2.5 mg PO .HOLD UD 04/17/20 02/19/22 History levothyroxine 125 mcg capsule 125 mcg PO QAM 04/17/20 02/19/22 History metoprolol succinate 25 mg 25 mg PO 4XWK 04/17/20 02/19/22 History tablet,extended release 24 hr ferrous sulfate 325 mg (65 mg 325 mg PO QAM 11/22/21 02/19/22 History iron) tablet (iron) multivitamin with minerals 1 tab PO QAM 11/22/21 02/19/22 History omeprazole 40 mg capsule,delayed 40 mg PO QAM PRN 11/22/21 02/19/22 History release prednisone 5 mg tablet 5 mg PO QAM 11/22/21 02/19/22 History atorvastatin 20 mg tablet 20 mg PO QAM 02/15/22 02/19/22 History midodrine 5 mg tablet 5 mg PO TID 02/15/22 02/19/22 History Patient History Medical History (Updated 02/20/22 @ 21:00 by Gabriela Almaguer MD, PhD) Anemia Anxiety Arthritis Atrial flutter HX A FLUTTER>CARDIAC ABLATION 2020 AV fistula RT (NEW DEVICE/HAS NOT USED YET) CKD (chronic kidney disease) Dialysis patient M/W/F AT [facility] Goodpasture syndrome Hemodialysis status History of COVID-19 09/2021 TESTED AT [facility]>HOSPITALIZED FOR FALLING>WENT TO REHAB (PT STATES ONLY WAS WEAK) Hyperlipidemia Hypotension new/worse in 2021 Hypothyroidism Lymphedema right leg (chronic) Morbid obesity with BMI of 50.0-59.9, adult LAVON on CPAP CPAP Osteoarthritis Rectovaginal fistula Surgical History H/O cardiac radiofrequency ablation 06/2021 [facility] History of cardioversion 5 YEARS AGO History of colonoscopy attempted colonoscopy in November 2021 -- unsuccessful d/t poor prep History of tonsillectomy History of vascular access device CURRENT PORT IN CHEST FOR DIALYSIS USE Hx of vaginal hysterectomy Family History Mother Family history of diabetes mellitus Other No family history of adverse response to anesthesia Social History Smoking Status: Never smoker Second Hand Exposure: No; Hx Alcohol Use: No Hx Substance Use: No Preferred Language: Urdu Communication Ability: Effective Logging Supervisor Required: No Beliefs That Will Affect Care: None marital status: Current Living Situation: Spouse Other Information That Helps Us Care for You: No Feels Safe at Home: Yes Safety Concerns: Feels Safe At This Time Assistive Devices: CPAP, Walker and Wheelchair Review of Systems Review of Systems: All systems reviewed & are unremarkable except as noted in HPI & below Physical Exam Constitutional: well developed and well nourished on RA Eyes: EOM intact bilaterally ENMT: Ears: no external ear abnormality Nose: no external nose abnormality Mouth: + dry oral mucous membranes Neck: no nuchal rigidity Respiratory: normal respiratory effort Auscultation: + diminished lung sounds Cardiovascular: Rate/Rhythm: regular rate and regular rhythm Extremities: + edema (trace) Gastrointestinal (Abdomen): Inspection/Auscultation: normal bowel sounds Percussion/Palpation: abdomen soft; abdomen nontender Musculoskeletal: Extremities: + abnormal strength Skin: no rashes, warm and dry RVF not examined Neurologic: smith, fluent speech, no tremor Psychiatric: Orientation: oriented x 3 Speech: normal rate/rhythm/volume of speech [facility] & [facility] ([facility]) Vital Signs (Past 12 Hours) Vital Signs Temp Pulse Pulse Resp BP Pulse Ox 06/29/22 08:06 36.7 C 79 19 75/49 L 92 02/20/22 04:00 36.7 C 71 16 81/50 L 94 02/20/22 00:00 72 02/19/22 23:25 36.6 C 73 16 88/59 L 94 Laboratory Results 02/20/22 07:27 02/20/22 05:41 (1) Hypotension Hypotension type: unspecified hypotension type Qualified Code(s): I95.9 - Hypotension, unspecified
[2022-02-20 10:40] LABS: Hematocrit (blood only) 20.9 % (37-47); Hemoglobin 6.4 g/dL (12.0-16.0); Mean Corpuscular Hemoglobin 31.5 pg (25-34); Mean Corpuscular Hgb Conc 30.6 g/dL (32-36); Mean Platelet Volume 10.5 fL (7.4-10.4); Platelet Count 113 K/uL (130-400); RDW Coefficient of Variation 19.5 % (11.5-14.5); RDW Standard Deviation 72.8 fL (36.4-46.3); Red Blood Count 2.03 M/uL (4.2-5.4); White Blood Count 4.42 K/uL (4.8-10.8)
--- NOTE | 2022-02-20 11:06 | History & Physical Report ---
Date of Service February 20, 2022 Assessment & Plan (1) Encounter for pre-operative examination: Plan: colonoscopy Patient was explained in detail regarding risks, benefits, limitations and alternatives of the above endoscopic procedure. Risks of intravenous sedation used for procedure were also explained. Risks include, but not limited to perforation, bleeding, infection, respiratory distress, cardiac arrest and . Patient is also aware about the possibility of missed lesion. Patient's questions were answered. The patient verbalized understanding the information and agreed to undergo the procedure. Admission and Anticipated Discharge Date Admission Date: February 19, 2022 History of Present Illness Primary Care Provider: Esperanza Carrillo Colonoscopy for Heme positive stool and anemia Allergies Allergy/AdvReac Type Severity Reaction Status Date / Time adhesive tape Allergy Intermediate blisters Verified 02/19/22 17:03 No Known Drug Allergies Allergy NKDA Verified 02/19/22 17:03 Home Medications Medication Instructions Recorded Confirmed Type apixaban 5 mg tablet (Eliquis) 2.5 mg PO .HOLD UD 04/17/20 02/19/22 History levothyroxine 125 mcg capsule 125 mcg PO QAM 04/17/20 02/19/22 History metoprolol succinate 25 mg 25 mg PO [id number] 04/17/20 02/19/22 History tablet,extended release 24 hr ferrous sulfate 325 mg (65 mg 325 mg PO QAM 11/22/21 02/19/22 History iron) tablet (iron) multivitamin with minerals 1 tab PO QAM 11/22/21 02/19/22 History omeprazole 40 mg capsule,delayed 40 mg PO QAM PRN 11/22/21 02/19/22 History release prednisone 5 mg tablet 5 mg PO QAM 11/22/21 02/19/22 History atorvastatin 20 mg tablet 20 mg PO QAM 02/15/22 02/19/22 History midodrine 5 mg tablet 5 mg PO TID 02/15/22 02/19/22 History Past Med/Surg History Medical History (Updated 02/20/22 @ 11:05 by Adelina Ramirez MD) Anemia Anxiety Arthritis Atrial flutter HX A FLUTTER>CARDIAC ABLATION 2020 AV fistula RT (NEW DEVICE/HAS NOT USED YET) CKD (chronic kidney disease) Dialysis patient M/W/F AT [facility] Hemodialysis status History of COVID-19 09/2021 TESTED AT [facility]>HOSPITALIZED FOR FALLING>WENT TO REHAB (PT STATES ONLY WAS WEAK) Hyperlipidemia Hypertension Hypothyroidism Lymphedema right leg (chronic) Morbid obesity with BMI of 50.0-59.9, adult LAVON on CPAP CPAP Osteoarthritis Surgical History H/O cardiac radiofrequency ablation 06/2021 [facility] History of cardioversion 5 YEARS AGO History of colonoscopy attempted colonoscopy in November 2021 -- unsuccessful d/t poor prep History of tonsillectomy History of vascular access device CURRENT PORT IN CHEST FOR DIALYSIS USE Hx of vaginal hysterectomy Family History Mother Family history of diabetes mellitus Other No family history of adverse response to anesthesia Social History Smoking Status: Never smoker Second Hand Exposure: No; Hx Alcohol Use: No Hx Substance Use: No Preferred Language: Polish Communication Ability: Effective Ply Bander Required: No Beliefs That Will Affect Care: None marital status: Current Living Situation: Spouse Other Information That Helps Us Care for You: No Feels Safe at Home: Yes Safety Concerns: Feels Safe At This Time Assistive Devices: CPAP, Glasses, Walker and Wheelchair Review of Systems All systems reviewed & are unremarkable except as noted in HPI & below Physical Exam Constitutional: comfortable; no acute distress Respiratory: normal respiratory effort, lungs clear to auscultation Cardiovascular: RRR, no murmur, no edema Gastrointestinal (Abdomen): normal bowel sounds, soft, nontender, no hepatosplenomegaly Results & Data ([facility]) Vital Signs (Past 12 Hours) Vital Signs Temp Pulse Pulse Resp BP Pulse Ox 02/20/22 08:06 36.7 C 79 19 75/49 L 92 02/20/22 04:00 36.7 C 71 16 81/50 L 94 02/20/22 00:00 72 02/19/22 23:25 36.6 C 73 16 88/59 L 94 Code Status & VTE Plan VTE Prophylaxis Plan VTE Prophylaxis will be ordered: Yes
[2022-02-20] MEDS ORDERED: SODIUM CHLORIDE 0.9% 250 ML IV PRN (11:16)
[2022-02-20] MEDS ORDERED: GLUCOSE 10 TABS/TUBE PO PRN (11:18)
[2022-02-20] MEDS ORDERED: GLUCAGON FOR INJ 1 MG VIAL SQ PRN (11:18)
[2022-02-20] MEDS ORDERED: DEXTROSE 50% 50 ML SYRINGE IV PRN (11:18)
[2022-02-20] MEDS ORDERED: CARBOHYDRATES FOR HYPOGLYCEMIA PO PRN (11:18)
[2022-02-20] MEDS ORDERED: GLUCOSE 40% GEL 15 GM TUBE PO PRN (11:18)
--- NOTE | 2022-02-20 15:13 | GI REPORT ---
Patient Name: Suzan Harrison Procedure Date: 02/20/2022 2:35 PM Date of : 1955 Admit Type: Inpatient Age: 67 Gender: Female Attending MD: Adelina Ramirez MD Procedure: Colonoscopy Providers: Adelina Ramirez MD Referring MD: Zaheer Reed Md Indications: Anemia, Colovaginal fistula Medicines: None Complications: No immediate complications. Estimated Blood Loss: Estimated blood loss: none. Procedure: Pre-Anesthesia Assessment: - Prior to the procedure, a History and Physical was performed, and patient medications, allergies and sensitivities were reviewed. The patient's tolerance of previous anesthesia was reviewed. - The risks and benefits of the procedure and the sedation options and risks were discussed with the patient. All questions were answered and informed consent was obtained. - Patient identification and proposed procedure were verified prior to the procedure by the physician and the nurse. The procedure was verified in the procedure room. - Pre-procedure physical examination revealed no contraindications to sedation. After I obtained informed consent, the scope was passed under direct vision. Throughout the procedure, the patient's blood pressure, pulse, and oxygen saturations were monitored continuously. The Endoscope was introduced through the anus with the intention of advancing to the cecum. The scope was advanced to the sigmoid colon before the procedure was aborted. Medications were not given. The colonoscopy was performed without difficulty. The patient tolerated the procedure well. The quality of the bowel preparation was good. Findings: The perianal and digital rectal examinations were normal. There was severe restricted mobility of the scope in the sigmoid colon due to extensive diverticulosis and likely a diverticular stricture hence the procedure was aborted to avoid the risk of perforation. Adult colonoscopy, ultrathin colonoscope and an upper gastroscope were all used to attempt passing the sigmoid colon and were unsuccessful. Scattered small and large-mouthed diverticula were found in the sigmoid colon. The retroflexed view of the distal rectum and anal verge was normal and showed no anal or rectal abnormalities. Impression: - Severe restricted mobility of the sigmoid colon precluding completion of the procedure likely due to underlying diverticulosis. Recommendation: - [facility]. - Follow up with colo-rectal surgeon. - Return to referring physician. Adelina Ramirez MD 02/20/2022 3:13:00 PM This report has been signed electronically. Note Initiated On: 02/20/2022 2:35 PM Number of Addenda: 0 I attest to the content of the Intraoperative Record and orders documented therein, exceptions below {[id number]}
--- NOTE | 2022-02-20 16:52 | Hospitalist Progress Note ---
Date of Service February 20, 2022 Assessment & Plan (1) Gastrointestinal fistula: (2) Goodpasture syndrome: (3) Hemodialysis status: (4) Hypotension: (5) Atrial flutter: (6) Hypothyroidism (acquired): (7) LAVON on CPAP: (8) Morbid obesity with BMI of 50.0-59.9, adult: Plan: Patient is a 67 yr female with H/O Goodpasture syndrome on HD MWF, atrial flutter, HTN, severe LAVON and other medical problems listed below who presents with worsening weakness and lightheadedness in setting of bowel prep. Colovaginal Fistula S/P Colonoscopy: Severe restricted mobility of the sigmoid colon precluding completion of the procedure likely due to underlying diverticulosis. Records requested from recent admission at [facility] Appreciate GI Input Needs follow up with Colorectal surgery upon discharge ESRD in setting of Goodpasture syndrome requiring HD Goodpasture syndrome Following with Dr. Santa of [facility] rheum, Dr. Gonzalez nephro Nephrology consulted Continue prednisone Anemia of chronic disease No obvious source of bleeding Transfuse PRBCs as needed Monitor CBC Hypotension Baseline SBP 85-90 Continue Midodrine Received 500 ml NSS Also on Midodrine Monitor BP Severe LAVON CPAP HS Atrial flutter on Metoprolol Eliquis on hold for procedure, per [facility] cardiology Resume Eliquis as able Morbid obesity BMI > 50 DVT Px: SCDs for now Code status: FULL CODE Admission and Anticipated Discharge Date Admission Date: February 19, 2022 Subjective Patient is seen and examined at bedside Had Colonoscopy this morning States having minimal nausea and transient dizziness this morning Patient denies any chest pain, abd pain, dyspnea Offers no other complaints Review of Systems Review of Systems: All systems reviewed & are unremarkable except as noted in Subjective Physical Exam Physical Exam: Physical Exam: Vitals signs as noted above General Appearance:Morbidly Obese, no apparent distress Head: normocephalic, Atraumatic Eyes: normal inspection, EOMI Neck: supple, Trachea midline Respiratory/Chest: Normal breath sounds, CTA, No accessory muscle use Cardiovascular: S1, S2, No murmur Abdomen/GI:Soft, Non tender, Bowel sounds present Extremities/Musculoskeletal:normal inspection, B/L LE Lymphedema Neurologic/Psych:AAOX3, grossly no focal neurological deficits Skin: normal color, warm Results & Data Results & Data ([facility]) Vital Signs (Past 12 Hours) Vital Signs Temp Pulse Pulse Resp BP BP Pulse Ox 02/20/22 16:25 36.4 C L 74 16 95/67 L 95 02/20/22 16:08 77 02/20/22 15:25 36.7 C 76 16 91/63 L 92 02/20/22 15:10 36.9 C 75 75 16 93/53 L 93/53 L 93 02/20/22 14:50 36.4 C L 76 16 92/56 L 97 02/20/22 14:23 36.7 C 77 77 16 95/63 L 95/63 L 94 02/20/22 13:55 36.8 C 76 18 95/66 L 02/20/22 13:40 36.8 C 72 18 91/60 L 93 02/20/22 13:21 36.6 C 75 16 91/60 L 92 02/20/22 12:05 79 19 85/53 L 92 02/20/22 08:06 36.7 C 79 19 75/49 L 92 Laboratory Results Short CBC 02/20/22 02/20/22 Range/Units 05:41 07:27 WBC Cancelled 4.42 L D Hgb Cancelled 6.4 L* Hct Cancelled 20.9 L* Plt Count Cancelled 113 L BMP 02/20/22 05:41 Sodium 137 Potassium 3.5 Chloride 103 Carbon Dioxide 23 BUN 19 Creatinine 3.85 H D Glucose 59 L Calcium 7.3 L Liver Function 02/20/22 Range/Units 05:41 Total Bilirubin 0.7 (0.2-1.0) mg/dl AST 16 (13-39) U/L ALT 11 (7-52) U/L Alkaline Phosphatase 60 (34-104) U/L Albumin 2.8 L (3.4-5.0) gm/dl
[2022-02-20] MEDS ORDERED: MIDODRINE HCL 2.5 MG TAB PO STA (20:29)
[2022-02-20] MEDS: ACETAMINOPHEN 325 MG TAB PO PRN (21:31)
[2022-02-20 22:30] LABS: Hematocrit (blood only) 26.6 % (37-47); Hemoglobin 8.3 g/dL (12.0-16.0)
[2022-02-21] MEDS: ALBUMIN 25% 100 mL 25 GM/100 ML VIAL IV SCH (04:38)
[2022-02-21] MEDS: LEVOTHYROXINE SODIUM 125 MCG TABLET PO SCH (04:42)
[2022-02-21] MEDS ORDERED: SODIUM CHLORIDE 0.9% 1000ML 1,000 ML IV PRN (08:04)
[2022-02-21 08:30] LABS: Hematocrit (blood only) 23.4 % (37-47); Hemoglobin 7.5 g/dL (12.0-16.0); Immature Granulocytes # (auto) 0.05 K/uL (0.00-0.02); Immature Granulocytes % (auto) 1.4 %; Lymphocytes # (auto) 0.42 K/uL (1.2-3.4); Lymphocytes % (auto) 12.1 %; Mean Corpuscular Hemoglobin 29.3 pg (25-34); Mean Corpuscular Hgb Conc 32.1 g/dL (32-36); Mean Corpuscular Volume 91.4 fL (80-100); Mean Platelet Volume 10.1 fL (7.4-10.4); Monocytes # (auto) 0.29 K/uL (0.11-0.59); Monocytes % (auto) 8.3 %; Neutrophils # (auto) 2.72 K/uL (1.4-6.5); Neutrophils % (auto) 78.2 %; Platelet Count 110 K/uL (130-400); RDW Coefficient of Variation 24.2 % (11.5-14.5); RDW Standard Deviation 80.3 fL (36.4-46.3); Red Blood Count 2.56 M/uL (4.2-5.4); White Blood Count 3.48 K/uL (4.8-10.8)
[2022-02-21] MEDS ORDERED: EPOETIN ALFA 20,000 UNITS/ML VIAL IV ONE (08:30)
[2022-02-21 08:52] LABS: Anisocytosis Present; Echinocytes 1+; Ovalocytes 1+
[2022-02-21 09:03] LABS: BUN Creatinine Ratio 5.5 (10-20); Calcium 8.4 mg/dl (8.5-10.1); Creatinine Clr Calc Pharmacy 11.8 ml/min; Est GFR (African American) 9.7 ml/min; Est GFR (Non-African American) 8.4 ml/min; Phosphorus 4.2 mg/dl (2.5-4.9); Potassium 3.6 mmol/L (3.5-5.1)
[2022-02-21] MEDS: METOPROLOL SUCC 25MG EXT REL TAB PO SCH (09:49)
[2022-02-21] MEDS: ATORVASTATIN 20 MG TAB PO SCH (09:49)
[2022-02-21] MEDS: FERROUS SULFATE 325 MG TAB PO SCH (09:49)
[2022-02-21] MEDS: CEROVITE ADV FORMULA TAB PO SCH (09:50)
[2022-02-21] MEDS: MIDODRINE HCL 10 MG TAB PO SCH ×3 (09:50→16:41)
[2022-02-21] MEDS: predniSONE 5 MG TAB PO SCH (09:50)
--- NOTE | 2022-02-21 13:35 | Nephrology Progress Note ---
Date of Service February 21, 2022 Assessment & Plan (1) Hypotension: Plan: -recommend getting [facility] TTE from this spring and/or repeating TTE to eval heart mm function; would also get ECG -get [facility] records >? eval for liver disease -continue midodrine -getting albumin IV ovrnight tonight >> stopping this as it complicates fluid status; she is tolerating lower bp for now >>agree w/ w/u for adrenal insufficiency (2) Dependence on renal dialysis: Plan: -continue HD 3X weekly; next tx today 02/21 though usually is MWF; has not been tolerating UF d/t volume issues -would not consider redosing rituxan at this tiime w/ active GI bleeding issues but needs to f/u on this (3) Acute on chronic anemia: Plan: s/p one unit pRBC today and has another unit ready; trend H/H; cont GI f/u (4) Rectovaginal fistula: Plan: follows w/ [facility] CRS; colonoscopy aborted d/t sigmoid stricture/diverticulosis Admission and Anticipated Discharge Date Admission Date: February 19, 2022 Subjective ongoing poor appetite. feels better than yesterday. no n/v. no edema. RVF has constant GI output Review of Systems Review of Systems: All systems reviewed & are unremarkable except as noted in Subjective Physical Exam 2 Constitutional: well developed and well nourished Eyes: EOM intact bilaterally ENMT: Ears: no external ear abnormality Nose: no external nose abnormality Mouth: + dry oral mucous membranes Neck: no nuchal rigidity Respiratory: normal respiratory effort Auscultation: + diminished lung sounds Cardiovascular: Rate/Rhythm: regular rate and regular rhythm Extremities: + edema (trace) Gastrointestinal (Abdomen): Inspection/Auscultation: normal bowel sounds Percussion/Palpation: abdomen soft; abdomen nontender Musculoskeletal: Extremities: + abnormal strength Skin: no rashes, warm and dry Neurologic: smith, fluent speech Psychiatric: Orientation: oriented x 3 Speech: normal rate/rhythm/volume of speech Results & Data ([facility]) Vital Signs (Past 12 Hours) Vital Signs Temp Pulse Pulse Resp BP BP Pulse Ox 02/21/22 13:00 79 105/75 02/21/22 12:30 82 103/74 02/21/22 12:00 86 105/71 02/21/22 11:30 80 116/75 02/21/22 11:00 82 116/72 02/21/22 10:25 36.5 C 78 02/21/22 08:05 36.5 C 78 20 94/64 L 90 02/21/22 08:01 82 02/21/22 03:35 36.6 C 79 20 94/62 L 95 Laboratory Results 02/21/22 08:21 02/21/22 08:21 (1) Hypotension Hypotension type: unspecified hypotension type Qualified Code(s): I95.9 - Hypotension, unspecified
--- NOTE | 2022-02-21 14:35 | XRay Report ---
XR shoulder RT min 2V routine CLINICAL HISTORY: Right shoulder pain. COMPARISON: None FINDINGS: Dual lumen right internal jugular [id number] is incidentally noted. Mild right lung int erstitial thickening is present. There is apparent elevation of the right humeral head with narrowing of the subacromial space. 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 There is mild glenohumeral joint osteoarthritis. Irregularity of the greater tuberosity is deg enerative. Old right fifth rib fracture is incidentally noted. IMPRESSION: 1. No acute fracture or dislocation within the right shoulder. 2. Moderate degenerative changes within the right shoulder, most pronounced within the AC joint. Elev ation of the right humeral head which may reflect underlying rotator cuff tear. ACT 112: Negative or not required by law. Electronically signed by: Audie Frey M.D. 02/21/2022 2:34 PM
--- NOTE | 2022-02-21 17:57 | Hospitalist Progress Note ---
Date of Service February 21, 2022 Assessment & Plan (1) Gastrointestinal fistula: (2) Goodpasture syndrome: (3) Hemodialysis status: (4) Hypotension: (5) Atrial flutter: (6) Hypothyroidism (acquired): (7) LAVON on CPAP: (8) Morbid obesity with BMI of 50.0-59.9, adult: Plan: Patient is a 67 yr female with H/O Goodpasture syndrome on HD MWF, atrial flutter, HTN, severe LAVON and other medical problems listed below who presents with worsening weakness and lightheadedness in setting of bowel prep. Colovaginal Fistula S/P Colonoscopy: Severe restricted mobility of the sigmoid colon precluding completion of the procedure likely due to underlying diverticulosis. Records requested from recent admission at [facility] Appreciate GI Input Needs follow up with Colorectal surgery upon discharge ESRD in setting of Goodpasture syndrome requiring HD Goodpasture syndrome [place] Santa [place] [facility] [place], Dr. Gonzalez nephro Appreciate Nephrology Input Continue prednisone Anemia of chronic disease No obvious source of bleeding Transfuse PRBCs as needed Monitor CBC Hb 7.5 today Hypotension Baseline SBP 85-90 Continue Midodrine Received 500 ml NSS Also on Midodrine--Increased to 10mg TID Monitor BP Obtain Old ECHO results Severe LAVON CPAP HS Right Shoulder Pain ? Rotator cuff tear --X ray:No acute fracture or dislocation within the right shoulder. Moderate degenerative changes within the right shoulder, most pronounced within the AC joint. Elevation of the right humeral head which may reflect underlying rotator cuff tear. Orthopedics Consulted Atrial flutter on Metoprolol Eliquis on hold for procedure, per [facility] cardiology Resume Eliquis as able Morbid obesity BMI > 50 DVT Px: SCDs for now Code status: FULL CODE Disposition May need Rehab Admission and Anticipated Discharge Date Admission Date: February 19, 2022 Subjective Patient is seen and examined at bedside Complains of Right shoulder pain, decreased ROM Planned for HD today No Nausea and dizziness today Patient denies any chest pain, dyspnea, abd pain Review of Systems Review of Systems: All systems reviewed & are unremarkable except as noted in Subjective Physical Exam Physical Exam: Physical Exam: Vitals signs as noted above General Appearance:Morbidly Obese, no apparent distress Head: normocephalic, Atraumatic Eyes: normal inspection, EOMI Neck: supple, Trachea midline Respiratory/Chest: Normal breath sounds, CTA, No accessory muscle use Cardiovascular: S1, S2, No murmur Abdomen/GI:Soft, Non tender, Bowel sounds present Extremities/Musculoskeletal:normal inspection, B/L LE Lymphedema Neurologic/Psych:AAOX3, grossly no focal neurological deficits Skin: normal color, warm Results & Data Results & Data ([facility]) Vital Signs (Past 12 Hours) Vital Signs Temp Pulse Pulse Resp BP BP Pulse Ox 02/21/22 15:02 36.4 C L 89 20 96/63 L 90 02/21/22 14:10 36.8 C 74 112/68 02/21/22 13:30 74 110/70 02/21/22 13:00 79 105/75 02/21/22 12:30 82 103/74 02/21/22 12:00 86 105/71 02/21/22 11:30 80 116/75 02/21/22 11:00 82 116/72 02/21/22 10:25 36.5 C 78 02/21/22 08:05 36.5 C 78 20 94/64 L 90 02/21/22 08:01 82 Laboratory Results Short CBC 02/20/22 02/21/22 Range/Units 20:46 08:21 WBC 3.48 L (4.8-10.8) K/uL Hgb 8.3 L 7.5 L (12.0-16.0) g/dL Hct 26.6 L 23.4 L (37-47) % Plt Count 110 L (130-400) K/uL BMP 02/21/22 08:21 Sodium 139 Potassium 3.6 Chloride 104 Carbon Dioxide 23 BUN 27 H Creatinine 4.95 H* D Glucose 133 H Calcium 8.4 L
[2022-02-21] MEDS ORDERED: MICONAZOLE NITRATE POWDER 43 GM EXT PRN (19:01)
[2022-02-21] MEDS: diphenhydrAMINE HCL 25 MG/10 ML UDC PO PRN (21:31)
[2022-02-22] MEDS: LEVOTHYROXINE SODIUM 125 MCG TABLET PO SCH (06:02)
[2022-02-22 08:49] LABS: Basophils # (auto) 0.01 K/uL (0-0.2); Basophils % (auto) 0.2 %; Eosinophils # (auto) 0.03 K/uL (0-0.5); Eosinophils % (auto) 0.7 %; Hematocrit (blood only) 24.2 % (37-47); Hemoglobin 7.5 g/dL (12.0-16.0); Immature Granulocytes # (auto) 0.17 K/uL (0.00-0.02); Immature Granulocytes % (auto) 3.9 %; Lymphocytes # (auto) 0.43 K/uL (1.2-3.4); Mean Corpuscular Hemoglobin 29.1 pg (25-34); Mean Corpuscular Volume 93.8 fL (80-100); Mean Platelet Volume 10.3 fL (7.4-10.4); Monocytes # (auto) 0.63 K/uL (0.11-0.59); Monocytes % (auto) 14.6 %; Neutrophils # (auto) 3.05 K/uL (1.4-6.5); Neutrophils % (auto) 70.6 %; Platelet Count 109 K/uL (130-400); RDW Coefficient of Variation 23.9 % (11.5-14.5); RDW Standard Deviation 82.1 fL (36.4-46.3); Red Blood Count 2.58 M/uL (4.2-5.4); White Blood Count 4.32 K/uL (4.8-10.8)
[2022-02-22 08:50] LABS: BUN Creatinine Ratio 4.9 (10-20); Calcium 8.4 mg/dl (8.5-10.1); Creatinine Clr Calc Pharmacy 16.8 ml/min; Est GFR (African American) 14.8 ml/min; Est GFR (Non-African American) 12.8 ml/min; Potassium 3.6 mmol/L (3.5-5.1)
[2022-02-22] MEDS: MIDODRINE HCL 10 MG TAB PO SCH ×3 (09:33→17:38)
[2022-02-22] MEDS: predniSONE 5 MG TAB PO SCH (09:34)
[2022-02-22] MEDS: CEROVITE ADV FORMULA TAB PO SCH (09:34)
[2022-02-22] MEDS: FERROUS SULFATE 325 MG TAB PO SCH (09:34)
[2022-02-22] MEDS: ATORVASTATIN 20 MG TAB PO SCH (09:36)
[2022-02-22 09:37] LABS: Hypochromasia Present
[2022-02-22] MEDS ORDERED: BETAMETH SOD PHOS/ACETATE IA 6 MG/ML IA ONE (11:55)
[2022-02-22] MEDS ORDERED: BUPIVACAINE 0.5 % 5 MG/1 ML MPF 30ML VIAL IA ONE (11:56)
--- NOTE | 2022-02-22 12:37 | Nephrology Progress Note ---
Date of Service February 22, 2022 Assessment & Plan (1) Hypotension: Plan: Subacute onset; stable and unexplained. Her SBP in EPIC runs 110-120s or higher since 2018 until Sep 2021 when it was more in 100-110s. Since December 2021, SBP in 80-90s range. 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 eval for liver disease -continue midodrine >>recommend perea eval and possibly tx for chronic secondary adrenal insufficiency - does not have the common electrolyte disorders ( high K, low Na) would expect commonly w/ primary adrenal insufficiency >> her AM cortisol was suppressed but she is on chronic prednisone; also had 2 doses dexamethasone on 02/20 which complicates evaluation >> pls consider d/w endocrine >>? if contribution from colovaginal fistula output which pt describes as constant (2) Dependence on renal dialysis: Plan: -continue HD 3X weekly; next tx today 02/22 on MWF; has not been tolerating UF d/t hypotension; next tx after today on 02/25 -would not consider redosing rituxan at this tiime w/ active GI bleeding issues but needs to f/u on this >>pls ensure rheumatology f/u after d/c as they manage her immunosuppression with goodpastures; cont 5 mg daily prednisone for now and hold bactrim d/t severe anemia >>>>recommend ask rheum if alternative PCP prophylaxis needed in lieu of bactrim (3) Acute on chronic anemia: Plan: has needed this admission pRBC; trend H/H; cont GI f/u (4) Gastrointestinal fistula: Plan: hx of colovaginal/rectovaginal fistula; relatively new dx-new since October 2021; follows w/ [facility] CRS; colonoscopy this admission aborted d/t sigmoid stricture/diverticulosis >> pt reports constant output >> ? if this contributes to low BP? >>? if she may have new onset Crohns (give stricture/fistula); also concern for diverticulitis/-osis; would address these queries w/ GI; diverticulitis likeliest culprit Admission and Anticipated Discharge Date Admission Date: February 19, 2022 Subjective tolerated HD today UF record pending. no sob, no n/v; ongoing colovaginal fistula output stable; no uncontrolled pain Physical Exam Constitutional: well developed and well nourished Eyes: EOM intact bilaterally ENMT: Ears: no external ear abnormality Nose: no external nose abnormality Mouth: + dry oral mucous membranes Neck: no nuchal rigidity Respiratory: normal respiratory effort Auscultation: + diminished lung sounds Cardiovascular: Rate/Rhythm: regular rate and regular rhythm Extremities: + edema (trace) Gastrointestinal (Abdomen): Inspection/Auscultation: normal bowel sounds Percussion/Palpation: abdomen soft; abdomen nontender Musculoskeletal: Extremities: + abnormal strength Skin: no rashes, warm and dry Psychiatric: Orientation: oriented x 3 Speech: normal rate/rhythm/volume of speech Results & Data ([facility]) Vital Signs (Past 12 Hours) Vital Signs Temp Pulse Pulse Resp BP Pulse Ox 02/22/22 11:07 36.6 C 74 20 93/65 L 93 02/22/22 07:29 70 02/22/22 06:47 36.6 C 76 20 99/66 L 93 02/22/22 04:55 36.7 C 73 18 92/62 L 95 Laboratory Results 02/22/22 08:03 02/22/22 08:03 (1) Hypotension Hypotension type: unspecified hypotension type Qualified Code(s): I95.9 - Hypotension, unspecified
[2022-02-22] MEDS ORDERED: EPOETIN ALFA 20,000 UNITS/ML VIAL IV ONE (12:53)
[2022-02-22] MEDS ORDERED: SODIUM CHLORIDE 0.9% 1000ML 1,000 ML IV PRN (12:53)
--- NOTE | 2022-02-22 16:02 | Hospitalist Progress Note ---
Date of Service February 22, 2022 Assessment & Plan (1) Gastrointestinal fistula: (2) Goodpasture syndrome: (3) Hemodialysis status: (4) Hypotension: (5) Atrial flutter: (6) Hypothyroidism (acquired): (7) LAVON on CPAP: (8) Morbid obesity with BMI of 50.0-59.9, adult: Plan: Patient is a 67 yr female with H/O Goodpasture syndrome on HD MWF, atrial flutter, HTN, severe LAVON and other medical problems listed below who presents with worsening weakness and lightheadedness in setting of bowel prep. Colovaginal Fistula S/P Colonoscopy: Severe restricted mobility of the sigmoid colon precluding completion of the procedure likely due to underlying diverticulosis. Records requested from recent admission at [facility] Appreciate GI Input Needs follow up with Colorectal surgery upon discharge ESRD in setting of Goodpasture syndrome requiring HD Goodpasture syndrome Following with Dr. Santa of [facility] rheum, Dr. Gonzalez nephro Appreciate Nephrology Input Continue prednisone Needs follow up with Rheumatology upon discharge Anemia of chronic disease No obvious source of bleeding Transfuse PRBCs as needed Monitor CBC Hb 7.5 today Hypotension Baseline low BPs Continue Midodrine Received 500 ml NSS Also on Midodrine--Increased to 10mg TID Monitor BP ECHO 01/10/22: LV ejection fraction 60 to 65%. Normal left ventricle wall motion abnormality. Normal right ventricular size and systolic function. Insufficient tricuspid regurgitation to assess for RVSP May need complete Adrenal insufficiency work Severe LAVON CPAP HS Right Shoulder Pain ? Rotator cuff tear --X ray:No acute fracture or dislocation within the right shoulder. Moderate degenerative changes within the right shoulder, most pronounced within the AC joint. Elevation of the right humeral head which may reflect underlying rotator cuff tear. Orthopedics Consulted Atrial flutter on Metoprolol Eliquis on hold for procedure, per [facility] cardiology Resume Eliquis as able Morbid obesity BMI > 50 DVT Px: SCDs for now Code status: FULL CODE Disposition PT/OT :Needs Rehab Admission and Anticipated Discharge Date Admission Date: February 19, 2022 Subjective Patient is seen and examined at bedside Right shoulder pain, decreased ROM is about the same as yesterday Planned for HD today Discussed with Nephrology Patient denies any chest pain, dyspnea, abd pain Review of Systems Review of Systems: All systems reviewed & are unremarkable except as noted in Subjective Physical Exam Physical Exam: Physical Exam: Vitals signs as noted above General Appearance:Morbidly Obese, no apparent distress Head: normocephalic, Atraumatic Eyes: normal inspection, EOMI Neck: supple, Trachea midline Respiratory/Chest: Normal breath sounds, CTA, No accessory muscle use Cardiovascular: S1, S2, No murmur Abdomen/GI:Soft, Non tender, Bowel sounds present Extremities/Musculoskeletal:normal inspection, B/L LE Lymphedema, RLE in dressing Neurologic/Psych:AAOX3, grossly no focal neurological deficits Skin: normal color, warm Results & Data Results & Data ([facility]) Vital Signs (Past 12 Hours) Vital Signs Temp Pulse Pulse Resp BP BP Pulse Ox 02/22/22 15:30 70 105/69 02/22/22 15:00 67 97/67 L 02/22/22 14:30 71 101/48 L 02/22/22 14:00 71 107/66 02/22/22 13:11 36.8 C 74 02/22/22 11:07 36.6 C 74 20 93/65 L 93 02/22/22 07:29 70 02/22/22 06:47 36.6 C 76 20 99/66 L 93 02/22/22 04:55 36.7 C 73 18 92/62 L 95 Laboratory Results Short CBC 02/22/22 Range/Units 08:03 WBC 4.32 L (4.8-10.8) K/uL Hgb 7.5 L (12.0-16.0) g/dL Hct 24.2 L (37-47) % Plt Count 109 L (130-400) K/uL BMP 02/22/22 08:03 Sodium 142 Potassium 3.6 Chloride 106 Carbon Dioxide 28 BUN 17 Creatinine 3.48 H D Glucose 86 Calcium 8.4 L
--- NOTE | 2022-02-22 16:26 | Orthopedic Consultation ---
Date of Service February 22, 2022 Assessment & Plan (1) Rotator cuff tear, right: She was seen and examined by Dr. Rose today as well. She has a chronic rotator cuff tear of the right shoulder. She was educated on this problem and treatment options. No surgery recommended at this time. We offered her an injection and she wants to proceed with that. She can follow up as needed with ortho. Procedure: right shoulder was sterilely prepped with alcohol and using aseptic technique 2mL of celestone and 8ml of 0.5% marcaine was injected into the subacromial space. She tolerated the procedure well. No complications. History of Present Illness Reason for Consultation: . Requesting Physician: . Attending Physician: Zaheer Reed MD .Suzan is a 67 year old right hand dominant patient that orthopedics was consulted for regarding right shoulder pain. She describes pain around the del toid area/upper arm. No fall. She said she has been dependent on her a lot recently and thinks her shoulder may be painful from him helping her up/having to pull on it some. She has weakness in the right shoulder. No recent treatment or past surgery on the shoulder. Allergies Allergy/AdvReac Type Severity Reaction Status Date / Time adhesive tape Allergy Intermediate blisters Verified 02/19/22 17:03 No Known Drug Allergies Allergy NKDA Verified 02/19/22 17:03 Home Medications Medication Instructions Recorded Confirmed Type apixaban 5 mg tablet (Eliquis) 2.5 mg PO .HOLD UD 04/17/20 02/19/22 History levothyroxine 125 mcg capsule 125 mcg PO QAM 04/17/20 02/19/22 History metoprolol succinate 25 mg 25 mg PO 4XWK 04/17/20 02/19/22 History tablet,extended release 24 hr ferrous sulfate 325 mg (65 mg 325 mg PO QAM 11/22/21 02/19/22 History iron) tablet (iron) multivitamin with minerals 1 tab PO QAM 11/22/21 02/19/22 History omeprazole 40 mg capsule,delayed 40 mg PO QAM PRN 11/22/21 02/19/22 History release prednisone 5 mg tablet 5 mg PO QAM 11/22/21 02/19/22 History atorvastatin 20 mg tablet 20 mg PO QAM 02/15/22 02/19/22 History midodrine 5 mg tablet 5 mg PO TID 02/15/22 02/19/22 History Past Med/Surg History Medical History Anemia Anxiety Arthritis Atrial flutter HX A FLUTTER>CARDIAC ABLATION 2020 AV fistula RT (NEW DEVICE/HAS NOT USED YET) CKD (chronic kidney disease) Dialysis patient M/W/F AT [facility] Goodpasture syndrome Hemodialysis status History of COVID-19 09/2021 TESTED AT [facility]>HOSPITALIZED FOR FALLING>WENT TO REHAB (PT STATES ONLY WAS WEAK) Hyperlipidemia Hypotension new/worse in 2021 Hypothyroidism Lymphedema right leg (chronic) Morbid obesity with BMI of 50.0-59.9, adult LAVON on CPAP CPAP Osteoarthritis Rectovaginal fistula Surgical History H/O cardiac radiofrequency ablation 06/2021 [facility] History of cardioversion 5 YEARS AGO History of colonoscopy attempted colonoscopy in November 2021 -- unsuccessful d/t poor prep History of tonsillectomy History of vascular access device CURRENT PORT IN CHEST FOR DIALYSIS USE Hx of vaginal hysterectomy Family History Mother Family history of diabetes mellitus Other No family history of adverse response to anesthesia Social History Smoking Status: Never smoker Second Hand Exposure: No; Hx Alcohol Use: No Hx Substance Use: No Preferred Language: Cook Islander Communication Ability: Effective Field Director Required: No Beliefs That Will Affect Care: None marital status: Current Living Situation: Spouse Other Information That Helps Us Care for You: No Feels Safe at Home: Yes Safety Concerns: Feels Safe At This Time Assistive Devices: CPAP, Walker and Wheelchair Review of Systems All systems reviewed & are unremarkable except as noted in HPI & below. Physical Exam . alert and oriented. NAD Right shoulder: able to actively raise her arm overhead only about to 120degrees. Full passive motion overhead. No swelling around the shoulder. Skin intact. No redness or warmth. She has weakness and pain with resisted abduction and external rotation. Results & Data Results & Data Laboratory Results . Diagnostic Findings .shoulder xrays reviewed and show ac joint arthritis and proximal humeral head migration. PG Care Time/CCT Total # of Minutes Spent Total Time Spent with Patient: Total time spent is greater than 50% in coordination of care (as documented) at patient's floor/unit and/or counseling patient: Coding Level of Care Code 26668 Inpt Consult Level 3 Diagnoses Rotator cuff tear, right M75.101
[2022-02-22] MEDS: ACETAMINOPHEN 325 MG TAB PO PRN (17:40)
[2022-02-22] MEDS: diphenhydrAMINE HCL 25 MG/10 ML UDC PO PRN (21:26)
[2022-02-23] MEDS: LEVOTHYROXINE SODIUM 125 MCG TABLET PO SCH (05:51)
[2022-02-23 08:27] LABS: Hematocrit (blood only) 26.2 % (37-47); Hemoglobin 8.1 g/dL (12.0-16.0)
[2022-02-23 08:39] LABS: BUN Creatinine Ratio 5.7 (10-20); Calcium 8.1 mg/dl (8.5-10.1); Creatinine Clr Calc Pharmacy 20.7 ml/min; Est GFR (African American) 19.3 ml/min; Est GFR (Non-African American) 16.7 ml/min; Potassium 3.9 mmol/L (3.5-5.1)
[2022-02-23] MEDS: ACETAMINOPHEN 325 MG TAB PO PRN (08:53)
[2022-02-23] MEDS: predniSONE 5 MG TAB PO SCH (08:54)
[2022-02-23] MEDS: METOPROLOL SUCC 25MG EXT REL TAB PO SCH (08:54)
[2022-02-23] MEDS: CEROVITE ADV FORMULA TAB PO SCH (08:54)
[2022-02-23] MEDS: FERROUS SULFATE 325 MG TAB PO SCH (08:54)
[2022-02-23] MEDS: MIDODRINE HCL 10 MG TAB PO SCH ×2 (08:54→12:11)
[2022-02-23] MEDS: ATORVASTATIN 20 MG TAB PO SCH (08:54)
--- NOTE | 2022-02-23 09:49 | Nephrology Progress Note ---
Date of Service February 23, 2022 Assessment & Plan (1) Hypotension: Plan: Subacute onset; stable and unexplained. Her SBP in EPIC runs 110-120s or higher since 2018 until Sep 2021 when it was more in 100-110s. Since December 2021, SBP in 80-90s range. -[facility] December 2021 ECG, TTE reviewed; await ECG >> shows inferoposterior infarct new since last summer but present on ECG last month -continue midodrine (2) Dependence on renal dialysis: Plan: -continue HD 3X weekly; she tolerated dialysis well yesterday. Electrolytes are stable and no signs of volume overload. Next dialysis will be Friday. From r enal standpoint patient can be discharged >>pls ensure rheumatology f/u after d/c as they manage her immunosuppression with goodpastures; cont 5 mg daily prednisone for now and hold bactrim d/t severe anemia >>>>recommend ask rheum if alternative PCP prophylaxis needed in lieu of bactrim (3) Acute on chronic anemia: Plan: has needed this admission pRBC; trend H/H; cont GI f/u Admission and Anticipated Discharge Date Admission Date: February 19, 2022 Subjective Seen for ESRD. No shortness of breath. She continues to have drainage from the rectovaginal fistula Review of Systems Review of Systems: All other systems were reviewed and negative except as noted in HPI Physical Exam Physical Exam: General exam: Appears comfortable, no acute distress HEENT: Pupils are equal and reactive to light Neck: No JVD, neck is supple trachea is midline Respiratory system: Clear breath sounds bilaterally. Gastrointestinal: Abdomen is soft, non distended, non tender, bowel sounds are present CVS: Regular rate and rhythm. No murmurs, rubs or gallops Musculoskeletal: No joint or muscle tenderness Extremities: Non tender, no edema, peripheral pulses are present Neuro: Oriented, no tremors, no focal neurological deficits Skin: No rashes Results & Data ([facility]) Vital Signs (Past 12 Hours) Vital Signs Temp Pulse Pulse Resp BP Pulse Ox 02/23/22 07:38 36.6 C 67 20 119/80 91 02/23/22 02:57 36.7 C 67 20 94/63 L 95 02/22/22 23:00 36.7 C 74 20 91/65 L 94 02/22/22 22:21 76 Laboratory Results 02/23/22 07:47 (1) Hypotension Hypotension type: unspecified hypotension type Qualified Code(s): I95.9 - Hypotension, unspecified
[2022-02-23] MEDS ORDERED: busPIRone 5 MG TAB PO SCH (13:20)
--- NOTE | 2022-02-23 13:25 | Hospitalist Progress Note ---
Date of Service February 23, 2022 Assessment & Plan (1) Gastrointestinal fistula: (2) Goodpasture syndrome: (3) Hemodialysis status: (4) Hypotension: (5) Atrial flutter: (6) Hypothyroidism (acquired): (7) LAVON on CPAP: (8) Morbid obesity with BMI of 50.0-59.9, adult: Plan: Patient is a 67 yr female with H/O Goodpasture syndrome on HD MWF, atrial flutter, HTN, severe LAVON and other medical problems listed below who presents with worsening weakness and lightheadedness in setting of bowel prep. Colovaginal Fistula S/P Colonoscopy: Severe restricted mobility of the sigmoid colon precluding completion of the procedure likely due to underlying diverticulosis. Records requested from recent admission at [facility] Appreciate GI Input Needs follow up with Colorectal surgery upon discharge ESRD in setting of Goodpasture syndrome requiring HD Goodpasture syndrome Following with Dr. Santa of [facility] rheum, Dr. Gonzalez nephro Appreciate Nephrology Input Continue prednisone Needs follow up with Rheumatology upon discharge Anemia of chronic disease No obvious source of bleeding Transfuse PRBCs as needed Monitor CBC Hb 8.1 today Hypotension Baseline low BPs Continue Midodrine Received 500 ml NSS Also on Midodrine--Increased to 10mg TID Monitor BP ECHO 01/10/22: LV ejection fraction 60 to 65%. Normal left ventricle wall motion abnormality. Normal right ventricular size and systolic function. Insufficient tricuspid regurgitation to assess for RVSP May need complete Adrenal insufficiency work as outpatient BP stable Severe LAVON CPAP HS Chronic Right Rotator cuff tear --X ray:No acute fracture or dislocation within the right shoulder. Moderate degenerative changes within the right shoulder, most pronounced within the AC joint. Elevation of the right humeral head which may reflect underlying rotator cuff tear. Appreciate Orthopedics Input S/P Injection Atrial flutter on Metoprolol Eliquis on hold for procedure, per [facility] cardiology Resume Eliquis Morbid obesity BMI > 50 DVT Px: SCDs Eliquis Code status: FULL CODE Disposition Acute Rehab Admission and Anticipated Discharge Date Admission Date: February 19, 2022 Subjective Patient is seen and examined at bedside States feeling anxious and tired Right shoulder pain is better Discussed with Nephrology today Patient denies any chest pain, dyspnea, abd pain Plan to be discharged to Rehab Facility today Review of Systems Review of Systems: All systems reviewed & are unremarkable except as noted in Subjective Physical Exam Physical Exam: Physical Exam: Vitals signs as noted above General Appearance:Morbidly Obese, no apparent distress Head: normocephalic, Atraumatic Eyes: normal inspection, EOMI Neck: supple, Trachea midline Respiratory/Chest: Normal breath sounds, CTA, No accessory muscle use Cardiovascular: S1, S2, No murmur Abdomen/GI:Soft, Non tender, Bowel sounds present Extremities/Musculoskeletal:normal inspection, B/L LE Lymphedema, RLE in dressing Neurologic/Psych:AAOX3, grossly no focal neurological deficits Skin: normal color, warm Results & Data Results & Data ([facility]) Vital Signs (Past 12 Hours) Vital Signs Temp Pulse Pulse Resp BP Pulse Ox 02/23/22 11:37 36.6 C 100 H 20 105/70 98 02/23/22 11:34 74 02/23/22 07:38 36.6 C 67 20 119/80 91 02/23/22 02:57 36.7 C 67 20 94/63 L 95 Laboratory Results Short CBC 02/23/22 Range/Units 07:47 Hgb 8.1 L (12.0-16.0) g/dL Hct 26.2 L (37-47) % BMP 02/23/22 07:47 Sodium 140 Potassium 3.9 Chloride 104 Carbon Dioxide 29 BUN 16 Creatinine 2.80 H D Glucose 139 H Calcium 8.1 L
--- NOTE | 2022-02-23 13:35 | Discharge Summary ---
Date of Service February 23, 2022 Admission HPI Per Admitting Provider Colonoscopy for Heme positive stool and anemia Admission Exam Per Admitting Provider Physical Exam Physical Exam: General Appearance:WD/WN, vitals as above, NAD, sitting up in bed, pleasant, morbidly obese Head: normocephalic, atraumatic Eyes:normal inspection, PERRL, conjunctivae normal, anicteric sclerae ENT: external ear and nose normal, oropharynx normal Neck: normal visual inspection, trachea midline, no thyromegaly Respiratory:normal respiratory effort, lungs clear to auscultation, no wheeze, rales, rhonchi. No accessory muscle use Cardiovascular: regular rate, rhythm, no murmur, normal peripheral pulses, BLE lymphedema. Vessels: no JVD Chest: normal inspection of chest Abdomen/GI: hyperactive bowel sounds, soft, nontender, no hepatosplenomegaly Extremities/Musculoskeletal: no cyanosis or clubbing, extremities motor str ength 5/5. RLE wound with dressing in place, c/d/i Neurologic: PERRL, EOMI, accommodation nl, no face palsy, no dysarthria, CN's II-XI intact bilaterally and moves all extremities Psychiatric:A+Ox3, euthymic affect Skin: no rashes, normal color, warm/dry Principal Diagnosis Colovaginal Fistula ESRD Anxiety Discharge Data Allergies Allergy/AdvReac Type Severity Reaction Status Date / Time adhesive tape Allergy Intermediate blisters Verified 02/19/22 17:03 No Known Drug Allergies Allergy NKDA Verified 02/19/22 17:03 Consultations 02/19/22 16:05 ED Decision to Admit Stat 02/19/22 17:40 Consult Nephrology Routine 02/19/22 19:22 Consult Health Information Management Stat 02/19/22 19:24 Consult Gastroenterology Routine 02/19/22 19:49 Consult Health Information Management Stat 02/21/22 17:56 Consult Orthopedic Surgery Routine 02/21/22 18:02 Consult Health Information Management Routine Procedures Performed Operation Date: 02/20/22 17:20 Actual Procedures p Colonoscopy - Adelina Ramirez MD Hospital Course (1) Gastrointestinal fistula: (2) Goodpasture syndrome: (3) Hemodialysis status: (4) Hypotension: (5) Atrial flutter: (6) Hypothyroidism (acquired): (7) LAVON on CPAP: (8) Morbid obesity with BMI of 50.0-59.9, adult: Patient is a 67 yr female with H/O Goodpasture syndrome on HD MWF, atrial flutter, HTN, severe LAVON and other medical problems listed below who presents with worsening weakness and lightheadedness in setting of bowel prep. Colovaginal Fistula S/P Colonoscopy: Severe restricted mobility of the sigmoid colon precluding completion of the procedure likely due to underlying diverticulosis. Records requested from recent admission at [facility] Appreciate GI Input Needs follow up with Colorectal surgery upon discharge ESRD in setting of Goodpasture syndrome requiring HD Goodpasture syndrome [place]. Santa [place] [facility] [place], Dr. Gonzalez nephro Appreciate Nephrology Input Continue prednisone Needs follow up with Rheumatology upon discharge Anemia of chronic disease No obvious source of bleeding Transfuse PRBCs as needed Monitor CBC Hb 8.1 today Hypotension Baseline low BPs Continue Midodrine Received 500 ml NSS Also on Midodrine--Increased to 10mg TID Monitor BP ECHO 01/10/22: LV ejection fraction 60 to 65%. Normal left ventricle wall motion abnormality. Normal right ventricular size and systolic function. Insufficient tricuspid regurgitation to assess for RVSP May need complete Adrenal insufficiency work as outpatient BP stable Severe LAVON CPAP HS JAMIR Previously on Zoloft with no help Started on Buspirone Chronic Right Rotator cuff tear --X ray:No acute fracture or dislocation within the right shoulder. Moderate degenerative changes within the right shoulder, most pronounced within the AC joint. Elevation of the right humeral head which may reflect underlying rotator cuff tear. Appreciate Orthopedics Input S/P Injection Atrial flutter on Metoprolol Eliquis on hold for procedure, per [facility] cardiology Resume Eliquis Morbid obesity BMI > 50 DVT Px: SCDs Eliquis Code status: FULL CODE Disposition Acute Rehab Total Time Total Time Spent Total Time Spent (In Minutes): 50 minutes Discharge Plan Discharge Items Patient Disposition: Transfer Inpatient Rehab Fac Reason For Visit: DEHYDRATION, BOWEL FISTULA Discharge Diagnosis: Colovaginal Fistula ESRD Anxiety Activity: Per Instructions section Exercise/Sports: Gradually increase as tolerated Non-emergency contact: Primary Care Provider, Surgeon and Green Energy Marketing Analyst Call non-emergency contact if: you have any medication questions, your symptoms worsen, your pain is concerning for you and you have a fever Follow-up/Referrals: Esperanza Carrillo PA-C [Primary Care Provider] - Diet: Dialysis Renal Addtl Attending Provider Instructions: Follow-up with your primary care physician Pamela MCKEON in 1 week upon discharge from rehab facility Follow-up with your colorectal surgeon at [facility] for further management of colovaginal fistula Follow-up with your automobile service writer for dialysis as needed. Seek immediate medical attention if your symptoms reoccur or worsen Please take all medications as instructed on discharge list below. Please call if you have any questions or problems. You can reach a [facility] hospitalist on duty at [facility] 24 hours a day by calling [phone] Pending Studies at Discharge: No Stand-Alone Forms: My [facility] Skilled Items Patient informed of condition?: Yes DNR: No Discharge Level of Care: Acute rehab Communicable Disease: No Discharge Prognosis: Stable Lines: None Urinary Catheter: No Medications and DC Order Prescriptions: New buspirone 5 mg Tablet 5 mg PO BID Qty: 30 RF: 0 pantoprazole 40 mg Tablet,Delayed Release (Dr/Ec) 40 mg PO QAM PRN (Reason: heartburn) Qty: 30 RF: 0 Continued metoprolol succinate 25 mg tablet extended release 24 hr 25 mg PO 4XWK RF: 0 levothyroxine 125 mcg capsule 125 mcg PO QAM RF: 0 Eliquis 5 mg tablet 2.5 mg PO .HOLD UD RF: 0 prednisone 5 mg Tablet 5 mg PO QAM RF: 0 multivitamin with minerals Tablet 1 tab PO QAM RF: 0 ferrous sulfate [iron] 325 mg (65 mg iron) Tablet 325 mg PO QAM RF: 0 atorvastatin 20 mg Tablet 20 mg PO QAM RF: 0 Changed midodrine 5 mg Tablet 10 mg PO TID Qty: 0 RF: 0 Discontinued omeprazole 40 mg Capsule,Delayed Release(Dr/Ec) 40 mg PO QAM PRN (Reason: severe heartburn) RF: 0 Discharge Orders: Discharge Order (Routine); Ordered 02/23/22 Ordered By: Zaheer Reed Admission Data Admit Date/Time: 02/19/22 18:26 Attending Provider: Zaheer Reed Admit Provider: Devonte Willoughby Primary Care Provider: Esperanza Carrillo Other Providers: Devonte Willoughby ; [facility] ; Adelina Ramirez ; Shawnee Eckert ; Randall Rose Other Interventions: Discharge Summary Assessment (RN) Last Done: 02/20/22 15:16
--- NOTE | 2022-02-23 23:08 | Electrocardiogram Report ---
Test Reason : Blood Pressure : / mmHG Vent. Rate : 080 BPM Atrial Rate : 080 BPM P-R Int : 154 ms QRS Dur : 080 ms QT Int : 408 ms P-R-T Axes : 042 043 007 degrees QTc Int : 470 ms Normal sinus rhythm Inferior-posterior infarct , age undetermined T wave abnormality, consider anterior ischemia Abnormal ECG When compared with ECG of 20-MAR-2021 12:20, Inferior-posterior infarct is now Present ST no longer depressed in Inferior leads T wave inversion now evident in Anterior leads Confirmed by Tk Soto ([id number]) on 02/23/2022 11:08:01 PM Referred By: REFERRED SELF Confirmed By:Tk Soto
[2022-02-25 15:17] LABS: Hepatitis B Surface Ab, Quant <5 mIU/mL (> OR = 10); Hepatitis BE Antibody Nonreactive
== END 2022-02-23 15:42 | DRG 393 ==
LOC: ED 14:01 → SUATTDRO 18:26 → 2N 18:26